=== PATIENT | male | born 1995 | race Caucasian/White ===

== ENCOUNTER 2019-09-07 11:40 | Emergency (ER) | payer SELFPAY ==
[~2019-09-07] VITALS: Ht 162 cm; Wt 59.0 kg
[2019-09-07] MEDS ORDERED: TETANUS,DIPTH,PERTUSS P/F (BOOSTRIX) 0.5 ML VIAL IM ONE (12:00)
[2019-09-07 12:01] LABS: BASOPHILS % (AUTO) 0 % (0-10); EOSINOPHILS # (AUTO) 0.1 10^3/uL (0.0-0.3); EOSINOPHILS % (AUTO) 1 % (0-10); HEMATOCRIT 46 % (40-54); HEMOGLOBIN 15.7 G/DL (13.3-17.7); LYMPHOCYTES # (AUTO) 3.2 X 10^3 (1.0-4.0); LYMPHOCYTES % (AUTO) 38 % (12-44); MEAN CORPUSCULAR HEMOGLOBIN 31 PG (25-34); MEAN CORPUSCULAR HGB CONC 34 G/DL (32-36); MEAN CORPUSCULAR VOLUME 90 FL (80-99); MEAN PLATELET VOLUME 10.9 FL (7.4-10.4); MONOCYTES # (AUTO) 0.7 X 10^3 (0.0-1.0); MONOCYTES % (AUTO) 8 % (0-12); NEUTROPHILS # (AUTO) 4.5 X 10^3 (1.8-7.8); NEUTROPHILS % (AUTO) 53 % (42-75); PLATELET COUNT 224 10^3/uL (130-400); RED CELL DISTRIBUTION WIDTH 13.4 % (10.0-14.5); WHITE BLOOD COUNT 8.5 10^3/uL (4.3-11.0)
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
[2019-09-07 12:09] LABS: ALBUMIN 4.4 GM/DL (3.2-4.5); CHLORIDE 108 MMOL/L (98-107); POTASSIUM 3.6 MMOL/L (3.6-5.0); SODIUM 141 MMOL/L (135-145)
[2019-09-07 12:10] LABS: CALCIUM 9.1 MG/DL (8.5-10.1)
[2019-09-07 12:11] LABS: GLUCOSE 165 MG/DL (70-105)
[2019-09-07 12:13] LABS: BILIRUBIN,TOTAL 1.1 MG/DL (0.1-1.0); CARBON DIOXIDE 18 MMOL/L (21-32)
[2019-09-07 12:15] LABS: ALKALINE PHOSPHATASE 139 U/L (40-136); CREATININE SERUM 0.97 MG/DL (0.60-1.30); GFR ESTIMATED > 60
[2019-09-07 12:16] LABS: BUN/CREATININE RATIO 10
--- NOTE | 2019-09-07 12:16 | Diagnostic Imaging Report ---
EXAMINATION: Right wrist radiographs, 3 views. COMPARISON: None. HISTORY: 24-year-old male, right wrist pain. FINDINGS: There is no identified acute fracture. There is no abnormal bone alignment. There is no radiopaque foreign body. Joint spaces are well preserved. IMPRESSION: 1. Unremarkable radiographs of the right wrist. Dictated by: Dictated on workstation # [id number]
--- NOTE | 2019-09-07 12:17 | Diagnostic Imaging Report ---
EXAMINATION: Right hand radiographs, 3 views. COMPARISON: None. HISTORY: 24-year-old male, right hand pain. FINDINGS: There is no identified acute fracture. Bone mineralization and alignment is grossly unremarkable. There is no identified radiopaque foreign body. The joint spaces are well preserved. The lateral radiograph is very obliquely positioned. IMPRESSION: 1. No identified acute bony abnormality of the right hand. Dictated by: Dictated on workstation # [id number]
[2019-09-07 12:18] LABS: ALANINE AMINOTRANSFERASE 18 U/L (0-55); MAGNESIUM 1.9 MG/DL (1.6-2.4)
[2019-09-07] MEDS ORDERED: LACTATED RINGERS 1,000 ML IV ONE (12:18)
[2019-09-07] MEDS ORDERED: ONDANSETRON 4 MG/2 ML (SDV) Z0FRAN ONE (12:33)
[2019-09-07] MEDS ORDERED: fentaNYL INJECTION 100 MCG/2 ML AMP IVP STA (12:34)
--- NOTE | 2019-09-07 12:35 | Diagnostic Imaging Report ---
EXAMINATION: Chest radiograph, portable AP view. DATE: 09/07/2019 12:10 PM hours. INDICATION: 24-year-old male, seizure. COMPARISON: None. FINDINGS: Heart size and mediastinal contours are unremarkable. There is no identified pneumothorax, large pleural effusion, or focal airspace consolidation. IMPRESSION: No identified acute cardiopulmonary abnormality. Dictated by: Dictated on workstation # [id number]
[2019-09-07] MEDS ORDERED: LEVETIRACETAM INJECTION 500 MG in NS (IVPB) 100 ML IV STA (12:36)
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
--- NOTE | 2019-09-07 12:56 | Diagnostic Imaging Report ---
PROCEDURE: CT head and CT cervical spine without contrast. TECHNIQUE: Multiple contiguous axial images were obtained through the brain and cervical spine without the use of intravenous contrast. Sagittal and coronal reformations through the cervical spine were then performed. Auto Exposure Controls were utilized during the CT exam to meet ALARA standards for radiation dose reduction. DATE: September 07, 2019. COMPARISON: None. INDICATION: 24-year-old male, seizure. Head and neck pain. FINDINGS: The ventricles and cerebral spinal fluid spaces are of normal size and configuration for the patient's age. There is no mass effect or midline shift. There is no acute intracranial hemorrhage. There is no abnormal extra-axial fluid collection. The visualized portions of the paranasal sinuses, mastoid air cells and middle ears are well aerated. There is no facet joint subluxation or dislocation. There is no asymmetric widening of the cervical disc spaces. There is no prominent prevertebral soft tissue swelling. There is straightening of the normal cervical lordosis. There is no identified acute fracture of the cervical spine. Cervical disc heights are well preserved. CT is limited for assessment of disc pathology as well as additional nonbloody causes of pathology in the spinal canal. The visualized portions of the lung apices are clear. IMPRESSION: 1. No identified acute intracranial abnormality. 2. No identified acute abnormality of the cervical spine. Dictated by: Dictated on workstation # [id number]
[2019-09-07] MEDS ORDERED: DIVA125T32 PO (13:45)
[2019-09-07 14:30] VITALS: BP 94/65
== END 2019-09-07 14:30 | disposition home or self-care (01) ==
LOC: ER 11:41
DX: S06.9X9A Unspecified intracranial injury with loss of consciousness of unspecified duration, initial encounter (principal); S00.83XA Contusion of other part of head, initial encounter; S60.811A Abrasion of right wrist, initial encounter; S60.312A Abrasion of left thumb, initial encounter; S40.211A Abrasion of right shoulder, initial encounter; G40.909 Epilepsy, unspecified, not intractable, without status epilepticus; R40.2142 Coma scale, eyes open, spontaneous, at arrival to emergency department; R40.2242 Coma scale, best verbal response, confused conversation, at arrival to emergency department; R40.2362 Coma scale, best motor response, obeys commands, at arrival to emergency department; F17.210 Nicotine dependence, cigarettes, uncomplicated; Z23 Encounter for immunization; V18.4XXA Pedal cycle driver injured in noncollision transport accident in traffic accident, initial encounter
CPT/HCPCS: 36415; 70450; 71045; 72125; 73110; 73130; 80053; 83735; 85025; 90715

== ENCOUNTER 2020-11-04 10:36 | Emergency (ER) | payer SELFPAY ==
[~2020-11-04] VITALS: Ht 162 cm; Wt 63.0 kg
[~2020-11-04 10:36] MED LIST: DIVA125T32 PO
[2020-11-04] MEDS ORDERED: ROCURONIUM 10 MG/ML 5 ML SYRINGE IV ONE (10:39)
[2020-11-04] MEDS ORDERED: MIDAZOLAM 5 MG/5 ML (VERSED) VIAL IJ ONE (10:39)
[2020-11-04] MEDS ORDERED: ETOMIDATE IV SOLN 20 MG/10 ML VIAL IV ONE (10:39)
[2020-11-04] MEDS ORDERED: fentaNYL INJ 100 MCG/2 ML AMP IV ONE (10:39)
[2020-11-04] MEDS ORDERED: NS IV 1000 ML 1,000 ML ONE (10:56)
[2020-11-04] MEDS ORDERED: VANCOMYCIN INJECTION 1,000 MG in NS (IVPB) 250 ML IV ONE (11:00)
[2020-11-04] MEDS ORDERED: PIPERACILLIN SODIUM/TAZOBACTAM 4.5 GM in NS (IVPB) 100 ML IV ONE (11:00)
[2020-11-04] MEDS ORDERED: proPOfol 200 MG/20 ML (DIPRIVAN) VIAL IV ONE (11:00)
[2020-11-04 11:06] LABS: BASOPHILS # (AUTO) 0.1 10^3/uL (0.0-0.1); BASOPHILS % (AUTO) 0 % (0-10); EOSINOPHILS % (AUTO) 6 % (0-10); HEMATOCRIT 55 % (40-54); HEMOGLOBIN 18.1 g/dL (13.3-17.7); LYMPHOCYTES # (AUTO) 9.3 10^3/uL (1.0-4.0); LYMPHOCYTES % (AUTO) 57 % (12-44); MEAN CORPUSCULAR HEMOGLOBIN 32 pg (25-34); MEAN CORPUSCULAR HGB CONC 33 g/dL (32-36); MEAN CORPUSCULAR VOLUME 98 fL (80-99); MEAN PLATELET VOLUME 11.4 fL (9.0-12.2); MONOCYTES # (AUTO) 0.9 10^3/uL (0.0-1.0); MONOCYTES % (AUTO) 5 % (0-12); NEUTROPHILS # (AUTO) 5.2 10^3/uL (1.8-7.8); NEUTROPHILS % (AUTO) 31 % (42-75); PLATELET COUNT 261 10^3/uL (130-400); WHITE BLOOD COUNT 16.5 10^3/uL (4.3-11.0)
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
[2020-11-04 11:09] LABS: ABG BASE EXCESS -9.9 MMOL/L (-2.5-2.5); ABG OXYGEN SATURATION 99 % (94-100); ABG PCO2 41 MMHG (35-45); ABG PO2 298 MMHG (79-93)
[2020-11-04 11:11] LABS: ALBUMIN 4.2 GM/DL (3.2-4.5); BILIRUBIN,URINE NEGATIVE (NEGATIVE); CLARITY,URINE SL CLOUDY; COLOR,URINE ORANGE; GLUCOSE, URINE (UA) NEGATIVE (NEGATIVE); KETONES,URINE NEGATIVE (NEGATIVE); LEUKOCYTE ESTERASE ,URINE NEGATIVE (NEGATIVE); NITRITE,URINE NEGATIVE (NEGATIVE); PH,URINE 6.5 (5-9); PROTEIN,URINE 2+ (NEGATIVE)
[2020-11-04 11:12] LABS: CALCIUM 8.9 MG/DL (8.5-10.1)
[2020-11-04 11:12] LABS: ABG PH 7.22 (7.37-7.43); ALLENS TEST YES-POS; INSPIRED O2 15; PATIENT TEMP 35.5; VENTILATOR YES
[2020-11-04 11:14] LABS: TOTAL PROTEIN 7.1 GM/DL (6.4-8.2)
[2020-11-04 11:15] LABS: BILIRUBIN,TOTAL 0.7 MG/DL (0.1-1.0)
[2020-11-04] MEDS ORDERED: POTASSIUM CL 10MEQ/50ML IVPB 50 ML IV ONE (11:15)
[2020-11-04] MEDS ORDERED: NS IV 1000 ML 1,000 ML IV ONE (11:15)
[2020-11-04 11:17] LABS: CREATININE SERUM 1.17 MG/DL (0.60-1.30)
[2020-11-04 11:18] LABS: BACTERIA,URINE TRACE /HPF; RBC,URINE 0-2 /HPF
--- NOTE | 2020-11-04 11:22 | Diagnostic Imaging Report ---
INDICATION: Respiratory arrest. COMPARISON: 09/07/2019. FINDINGS: ET tube and NG tube are present in good position. The lungs are well-aerated. There are consolidated infiltrates in the upper lobes bilaterally more severe on the right. The lower lobes are clear. Heart is not enlarged. No pneumothorax or pleural effusion. IMPRESSION: 1. Satisfactory intubation. 2. Consolidated infiltrates in the upper lobes more severe on the right. Dictated by: Dictated on workstation # [id number]
[2020-11-04 11:24] LABS: EOSINOPHILS % (MANUAL) 6 %; HYPOCHROMASIA MARKED; LYMPHOCYTES % (MANUAL) 49 %; MONOCYTES % (MANUAL) 15 %; NEUTROPHILS % (MANUAL) 30 %
[2020-11-04 11:26] LABS: VALPROIC ACID 51.7 UG/ML (50.0-100.0)
[2020-11-04 11:27] LABS: AMPHETAMINE SCREEN, URINE NEGATIVE (NEGATIVE); BARBITURATE SCREEN URINE NEGATIVE (NEGATIVE); BENZODIAZEPINES SCREEN URINE NEGATIVE (NEGATIVE); CANNABINOID SCREEN, URINE POSITIVE (NEGATIVE); COCAINE SCREEN URINE NEGATIVE (NEGATIVE); METHADONE STAT NEGATIVE (NEGATIVE); METHAMPHETAMINE SCREEN URINE S NEGATIVE (NEGATIVE); OPIATE SCREEN URINE NEGATIVE (NEGATIVE); OXYCODONE STAT NEGATIVE (NEGATIVE); PROPOXYPHENE STAT NEGATIVE (NEGATIVE); TRICYCLIC ANTIDEPRESSANTS SCRE NEGATIVE (NEGATIVE)
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
[2020-11-04] MEDS ORDERED: NS (IVPB) 100 ML ONE (11:52)
[2020-11-04] MEDS ORDERED: DexMEDEtomidine 250 ML DRIP 250 ML IV SCH (12:45)
[2020-11-04 12:50] VITALS: BP 126/74
[2020-11-04 13:06] LABS: ABG BASE EXCESS -6.9 MMOL/L (-2.5-2.5); ABG OXYGEN SATURATION 95 % (94-100); ABG PCO2 51 MMHG (35-45); ABG PO2 85 MMHG (79-93); ABG TCO2 21.6 MMOL/L (21.0-31.0)
[2020-11-04 13:10] LABS: ABG PH 7.21 (7.37-7.43)
[2020-11-04 13:11] LABS: ALLENS TEST POS; INSPIRED O2 15; PATIENT TEMP 36.8; VENTILATOR YES
[2020-11-04] MEDS ORDERED: fentaNYL INJ 100 MCG/2 ML AMP ONE ×2 (13:13→14:09)
[2020-11-04] MEDS ORDERED: fentaNYL INJ 100 MCG/2 ML AMP IVP ONE (13:15)
[2020-11-04] MEDS: fentaNYL INJ 100 MCG/2 ML AMP IVP ONE ×2 (13:18→15:16)
[2020-11-04] MEDS ORDERED: ACETAMINOPHEN 650 MG SUPP (TYLENOL) PR ONE (13:30)
[2020-11-04] MEDS ORDERED: PROPOFOL DRIP (ICU) 100 ML IV ONE (13:47)
[2020-11-04 14:16] VITALS: BP 124/85
--- OUTSIDE RECORDS SUMMARY | 2020-11-07 04:31 | XMS REPORT | Clinical Summary ---
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 3.7 (H) 0.0 - 2.0 mmol/L [facility] Specimen Blood Performing Organization Address City/[facility]/ZIP Code P anne Number [facility] [address] [place] [address] LABORATORIES [facility] [address] [place] [address] * Creatine Kinase (11/04/2020 3:30 PM CDT) Creatine Kinase 179 IU/L [facility]: Hospital Lab White Female: 30 - 160 IU/L Black Female: 30 - 430 IU/L White Male: 40 - 425 IU/L Black Male: 50 - 850 IU/L Specimen Blood Performing Organization Address City/State/ZIP Code P anne Number [address] [address] LABORATORIES [facility] [address] [place] [address] * Comprehensive Metabolic Panel (11/04/2020 3:30 PM CDT) Pathologist [facility] Sodium 141 133 - 147 MEQ/L [facility] Potassium 4.9 3.5 - 5.3 MEQ/L [facility] Chloride 106 96 - 112 MEQ/L [facility] Carbon Dioxide 23 20 - 32 MEQ/L [facility] Anion Gap 12 5 - 17 [facility] Calcium 8.5 8.4 - 10.5 mg/dL [facility] Glucose 85 70 - 100 mg/dL [facility] Protein Total 6.7 6.0 - 8.2 g/dL [facility] Lab Albumin 4.1 3.5 - 5.0 g/dL [facility] Alkaline 98 42 - 140 IU/L [facility] Lab Alanine 21 0 - 49 IU/L [facility] Lab e Aspartate 45 15 - 46 IU/L [facility] Lab e Bilirubin Total 2.7 (H) 0.2 - 1.3 mg/dL [facility] Blood Urea 13 7 - 26 mg/dL [facility] Lab Creatinine 0.9 0.6 - 1.3 mg/dL [facility] eGFR Male AA 123 60 - 200 [facility] mL/min/1.73sq [facility] Lab eGFR Male 102 60 - 200 [facility] Non- mL/min/1.73sq [facility] Lab Specimen Blood Performing Organization Address City/State/ZIP Code P anne Number [facility] [address] [place] [address] LABORATORIES [facility] [address] [place] [address] * CBC and Diff (manual diff if necessary) (11/04/2020 3:30 PM CDT) WBC 29.27 (H) 4.00 - 11.00 TH/uL [facility] Lab RBC 5.53 4.31 - 5.84 MIL/uL [facility] Lab Hemoglobin 17.7 (H) 13.0 - 17.0 g/dL [facility] Hematocrit 53 (H) 40 - 50 % [facility] MCV 95 80.0 - 99.0 fL [facility] MCH 32 27.0 - 34.0 pg [facility] MCHC 34 32 - 36 % [facility] RDW 13.0 11.5 - 14.5 % [facility] Platelet Count 229 140 - 400 TH/uL [facility] MPV 10.8 9.4 - 12.3 fL [facility] Nucleated RBCs 0 0 - 0 /100 [facility] % Neutrophils 78 45 - 78 % [facility] %Lymphocytes 16 15 - 47 % [facility] % Monocytes 4 0 - 12 % [facility] %Eosinophils 1 0 - 7 % [facility] %Basophils 0 0 - 2 % [facility] % Imm Grans 1 0 - 1 % [facility] # Granulocytes 22.83 (H) 1.70 - 6.80 TH/uL [facility] # Lymphocytes 4.68 (H) 1.00 - 3.30 TH/uL [facility] # Monocytes 1.17 (H) 0.20 - 0.90 TH/uL [facility] # Eosinophils 0.29 0.00 - 0.40 TH/uL [facility] # Basophils 0.11 (H) 0.00 - 0.10 TH/uL [facility] Vacuolated Present (A) Absent [facility] Lab Specimen Blood Performing Organization Address City/State/ZIP Code P anne Number [facility] [address] [place] [address] LABORATORIES [facility] [address] [place] [address] * Amylase (11/04/2020 3:30 PM CDT) Amylase 253 (H) 30 - 130 IU/L [facility] Specimen Blood Performing Organization Address City/State/ZIP Code P anne Number [facility] [address] [place] [address] LABORATORIES [facility] [address] [place] [address] * Alcohol Serum (11/04/2020 3:30 PM CDT) Alcohol Serum <10 0 - 9 mg/dL [facility] Specimen Blood Performing Organization Address City/[facility]/ZIP Code P anne Number [facility] [address] [place] [address] LABORATORIES [facility] [address] [place] [address] * ABORH Type (11/04/2020 3:30 PM CDT) ABORH Type B Positive [facility] Specimen Blood Performing Organization Address City/[facility]/ZIP Code P anne Number 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
--- OUTSIDE RECORDS SUMMARY | 2020-11-07 04:31 | XMS REPORT | Encounter Summary ---
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 if n o improvement within 3 days. ondansetron (ZOFRAN) injection 4 mg 4 mg, Intravenous, Every 6 hours PRN, nausea/vomiting (3rd line), Starting on Mon11/04/20 at 1610 polyethylene glycol (GLYCOLAX) packet 1 7 g 17 g, Oral, Daily PRN, constipation, constipation, Starting on Mon11/04/20 at 1610, Hold these medications if patient has had loose stool or diarrhea within previous 24 hours. potassium bicarb-citric acid (EFFER-K) effervescent tablet 20 mEq 20 mEq, Oral, As needed, aggressive electrolyte replacement, Starting on 11/04/20 at 1610, Administer if unable to swallow potassium tablets. Replace in addition to any scheduled potassium doses. Administer 20 mEq once for potassium level 3.6 to 3.9 mg/dL. Repea t potassium level in AM. Administer 20 mE q every hour x 2 doses (total dose = 40 mEq) for potassium level 3.1 to 3.5 mg/dL. Repeat potassium level in AM. Administer 20 mEq every hour x 3 doses (total dose = 60 mEq) for potassium level less than or equal to 3.0. Repeat potassium level 4 hours after last oral dose administered. Administer only if serum creatinine is less than 2 within the previous 48 hours and sustained urine output is greater than 20 mL/hr for 6 hours (if able to monitor). Completely dissolve tablet in 3 to 4 ounces (90-120 mL) of cold juice or water before administering. For fluid restricted patients, a smaller volume may be used to dilute (e.g. 15-30 mL). potassium chloride (KLOR-CON) CR tablet 20 mEq 20 mEq, Oral, As needed, aggressive electrolyte replacement, Starting on 11/04/20 at 1610, Replace in addition to any scheduled potassium doses. Administer 20 mEq once for potassium level 3.6 to 3.9 mg/dL. Repeat potassiu m level in AM. Administer 20 mEq every hour x 2 doses (total dose = 40 mEq) fo r potassium level 3.1 to 3.5 mg/dL. Repea t potassium level in AM. Administer 20 mE q every hour x 3 doses (total dose = 60 mEq) for potassium level less than or equal to 3.0. Repeat potassium level 4 hours after last oral dose administered . Administer only if serum creatinine is less than 2 within the previous 48 hour s and sustained urine output is greater than 20 mL/hr for 6 hours (if able to monitor). DO NOT CRUSH OR CHEW. potassium chloride 20 mEq in 100 mL IVP B 20 mEq, Intravenous, Administer over 2 Hours, As needed, aggressive electrolyt e replacement, Starting on Mon11/04/20 at 1610, Administer if unable to take oral potassium. Replace in addition to any scheduled potassium doses. Administer 20 mEq once for potassium level 3.6 to 3.9 mg/dL. Repeat potassium level in AM . Administer 20 mEq x 2 doses (total dose = 40 mEq) for potassium level 3.1 to 3. 5 mg/dL. Repeat potassium level 2 hours after last infusion complete. Administer 20 mEq x 3 doses (total dose = 60 mEq) for potassium level less than or equal to 3.0. Repeat potassium level 2 hours after last infusion complete. Administer only if serum creatinine is less than 2 within the previous 48 hour s and sustained urine output is greater than 20 mL/hr for 6 hours (if able to monitor). Potassium chloride should be infused at a rate of 10 mEq/hr through a peripheral line, or at a rate of 20 mEq/hr through a central line. 11/04/2020 11:08 PM CDT 5 mg prochlorperazine (COMPAZINE) injection Given 5-10 mg 5-10 mg, Intravenous, Every 4 hours PRN , nausea/vomiting (1st line), Starting on Mon11/04/20 at 1610, May repeat 5 mg dos e x 1 after 30 minutes if first dose ineffective. Do not exceed a total dose of 40 mg within a 24 hour period. Rate of administration should not exceed 5 mg/minute. prochlorperazine (COMPAZINE) injection 5-10 mg 5-10 mg, Intramuscular, Every 4 hours PRN, nausea/vomiting (1st line), Starting on Mon11/04/20 at 1610, Administer if patient does not have IV access. May repeat 5 mg dose x 1 after 60 minutes if first dose ineffective. D o not exceed a total dose of 40 mg within a 24 hour period. prochlorperazine (COMPAZINE) suppositor y 25 mg 25 mg, Rectal, Every 12 hours PRN, nausea/vomiting (1st line), Starting on Mon11/04/20 at 1610, Administer if patient does not have IV access and refuses IM injection. 11/05/2020 8:55 AM CDT 100 mL/hr 100 mL/hr sodium chloride 0.9% infusion New Bag 100 mL/hr, Intravenous, Continuous, Starting on Mon11/04/20 at 2115, For 48 hours 100 mL/hr 100 mL/hr New Bag 11/04/2020 10:23 PM CDT 11/04/2020 4:07 PM CDT 500 mL 1000 mL/hr sodium chloride 3% (HYPERTONIC) IV bolus New Bag 500 mL, Intravenous, Administer over 30 Minutes, Once, On Mon11/04/20 at 1630, For 1 dose, Double check the IV pump settings before administering. Serious injury or may occur if the rate o r duration of administration of concentrated sodium chloride is excessive. Central line is recommended for administration. REFRIGERATE 500 mL 1000 mL/hr New Bag 11/04/2020 4:06 PM CDT 11/06/2020 9:44 PM CDT 250 mg valproic acid (DEPAKENE) 250 mg/5 mL (5 Given mL) syrup 250 mg 250 mg, Oral, Every 12 hours scheduled, First dose on Mon11/05/20 at 1130, Do no t handle if or planning to becom e . Double Glove. Avoid inhalation and contact with skin, eyes, and clothing 250 mg Given 11/06/2020 9:24 AM CDT 250 mg Given 11/05/2020 9:37 PM CDT documented in this encounter Active and Recently Administered Medications Times are shown in CDT. 11/05/2020 11/06/2020 Medication Order 11/04/2020 0855 (Given - Provider: Lanie Sam RN) chlorhexidine (PERIDEX) 0.12 % solution 2026 (Given - 15 mL (CANCELED) Provider: Bianca Higgins 15 mL, Mouth/Throat, 2 times daily, ANA Valadez) First dose on Mon11/04/20 at 2100, Swish and expectorate, do not swallow. Following administration do not rinse with water or other mouthwashes, brush teeth, or eat immediately. 1446 (Given - Provider: Tracie Rios RN) divalproex (DEPAKOTE DR) delayed-releas e tablet 250 mg (COMPLETED) 250 mg, Oral, Once, Indications: Additional dose due to low Depakote level, On Mon11/06/20 at 1330, For 1 dose, DO NOT CRUSH OR CHEW. 0855 (Given - Provider: Lanie Sam , ANA) famotidine (PEPCID) injection 20 mg 2026 (Given - (CANCELED) Provider: Bianca Higgins 20 mg, Intravenous, 2 times daily, First Erppardeep, RN) dose on Mon11/04/20 at 2100, Pharmacy to adjust dose for renal insufficiency. 0524 (Given - Provider: Bianca munoz RN)1303 (Given - Provider: Lanie Sam RN)2137 (Given - Provider: Genny Winn, RN) 0605 (Given - Provider: Alejandra esquivel RN)1447 (Given - Provider: Tracie Rios RN)2144 (Not Given - Provider: Kacy Oh RN - Reason: Patient/family refused) heparin (porcine) 5,000 unit/mL 2223 (Given - injection 5,000 Units Provider: Bianca Higgins 5,000 Units, Subcutaneous, Every 8 ANA Valadez) hours, First dose on Mon11/04/20 at 2200 0000 (Stopped - Provider: Bianca abdalla RN) magnesium sulfate IVPB 2 gram (premix) 2215 (New Bag - (COMPLETED) Provider: Bianca Higgins 2 g, Intravenous, Administer over 2 ANA Valadez) Hours, Once, On Mon11/04/20 at 2115, For 1 dose sodium chloride 3% (HYPERTONIC) IV bolus 1606 (New B ag - (COMPLETED) Provider: Zoltan A 500 mL, Intravenous, Administer over 30 ANA Park)16 07 (New Minutes, Once, On Mon11/04/20 at 1630, Bag - Provider : For 1 dose, Double check the IV pump Zoltan Park RN) settings before administering. Serious injury or may occur if the rate o r duration of administration of concentrated sodium chloride is excessive. Central line is recommended for administration. REFRIGERATE 1220 (Given - Provider: Lanie Sam RN)2137 (Given - Provider: Genny Winn, RN) 0924 (Given - Provider: Tracie Rios RN)2143 (Given - Provider: Kacy Oh RN) valproic acid (DEPAKENE) 250 mg/5 mL (5 mL) syrup 250 mg 250 mg, Oral, Every 12 hours scheduled, First dose on Esmer 11/05/20 at 1130, Do no t handle if or planning to becom e . Double Glove. Avoid inhalation and contact with skin, eyes, and clothing 11/05/2020 11/06/2020 Medication Order 11/04/2020 0524 (Rate/Dose Change - Provider: Bianca Valadez RN)1006 (Stopped - Provider: Lanie Sam RN) fentaNYL 10 mcg/mL in 0.9% sodium 1543 (Hold this do se chloride infusion (CANCELED) - Provider: Zoltan Gastelum 20-300 mcg/hr (2-30 mL/hr), Intravenous, ANA Park - Reason: at 2-30 mL/hr, Continuous, Starting on Order paramet ers not Mon11/04/20 at 1543, Begin infusion at 20 met)1949 (N ew Bag - mcg/hr and titrate by sedation titration Provider: Sean Higgins protocol-directed increments every 15 JaredingANA) 5 minutes to a pain score less than 4 and (Rate/Dose C hange - RASS 0 to -1 (standard). Current RASS Provider: Maribell Higgins +1 to +2: A 25% increase in infusion ANA Valadez)2 314 rate should be preceded by at least 2 (Rate/Dose Dorothy nge - doses of PRN opioid within the last 6 Provider: Suzy Higgins hours. Current RASS +3 to +4: A 25-50% ErpANA roberto ) increase in infusion rate should be preceded by at least 1 dose of PRN morphine/hydromorphone or 2 doses of NV N fentanyl within the last hour. Call physician for infusion rates exceeding 300 mcg/hr. lactated ringers infusion (CANCELED) 1846 (New Bag - 100 mL/hr, Intravenous, Continuous, Provider: Zoltan Gastelum Starting on Mon11/04/20 at 1815, For 48 ANA Park)222 0 hours (Stopped - Provider: Bianca Valadez RN) 0855 (New Bag - Provider: Lanie lamas RN)1536 (Stopped - Provider: Lanie Sam RN) sodium chloride 0.9% infusion (CANCELED) 2223 (New B ag - 100 mL/hr, Intravenous, Continuous, Provider: Bianca Higgins Starting on Mon11/04/20 at 2115, For 48 ANA Valadez ) hours 11/05/2020 11/06/2020 Medication Order 11/04/2020 1220 (See Alternative - Provider: Niko Sam RN) acetaminophen (TYLENOL) suppository 325-650 mg(Linked Group 1) 325-650 mg, Rectal, Every 6 hours PRN, mild pain (pain score 1-3), temperature greater than or equal to 101.5 degrees Fahrenheit, or if patient declines higher pain score therapy, Starting on Mon11/04/20 at 1610, Do not exceed 4 GM/DAY of acetaminophen. If 65 or olde r do not exceed 3 GM/DAY. If chronic alcoholic do not exceed 2 GM/DAY. 1220 (Given - Provider: Lanie Sam RN - Comment: Pt c/o headache) acetaminophen (TYLENOL) tablet 325-650 mg(Linked Group 1) 325-650 mg, Oral, Every 6 hours PRN, mild pain (pain score 1-3), temperature greater than or equal to 101.5 degrees Fahrenheit, or if patient declines higher pain score therapy, Starting on Mon11/04/20 at 1610, Do not exceed 4 GM/DAY of acetaminophen. If 65 or olde r do not exceed 3 GM/DAY. If chronic alcoholic do not exceed 2 GM/DAY. dextrose (D50W) 50 % injection 25-50 mL 1632 (Given - 25-50 mL, Intravenous, As needed, low Provider: Kristine Gastelum blood sugar, for 24 hours., Starting on ANA Park) Mon11/04/20 at 1624, Give if patient NPO and IV access already available. If no IV access give Glucagon SQ or IM in arm and turn patient on side. For blood glucose (BG): Less than 50 mg/dL: Giv e D50W 50 mL. Check BG every 15 minutes and repeat until greater than 80 mg/dL. Less than 70 mg/dL: Give D50W 25 mL. Check BG every 15 minutes and repeat until greater than 80 mg/dL. Less than 70 mg/dL and patient unconscious: Give D50W 50 mL. Call physician for additional orders. Check BG every 15 minutes and repeat until greater than 8 0 mg/dL. Once blood glucose greater michael n 80 mg/dL, check BG in one hour. Call physician if less than 70 mg/dL. 033 (Given - Provider: Bianca munoz RN)521 (Given - Provider: Bianca Valadez RN) fentaNYL (SUBLIMAZE) injection 50-100 1656 (Given - mcg (CANCELED) Provider: Zoltan Gastelum 50-100 mcg, Intravenous, Every 15 min AAN Park)184 PRN, moderate pain (pain score 4-6), (Given - Provid er: severe pain (pain score 7-10), or Zoltan Park, agitation to achieve RASS goal, Starting RN)1924 (Gi denise - on Mon11/04/20 at 1539, RASS goal: 0 to Provider: Nicola er A -1 (standard) Current RASS +1 to +2: ANA Park)1944 Nurse may start or request physician (Given - Provid er: order for fentanyl infusion if 2 or more Marivel huston RN - PRN fentanyl doses given within the last Comment: fide chandra, 6 hours Current RASS +3 to +4: Nurse may fighting ve nt)2055 start or request physician order for (Given - Provid er: fentanyl infusion if 2 or more PRN Sharmaine Witt, fentanyl doses given within the last RN)2308 (Given - hour Provider: Bianca Valadez RN) glucagon (GLUCAGEN) injection 1 mg(Linked Group 2) 1 mg, Intramuscular, As needed, low blood sugar, low blood sugar, Starting on Mon11/04/20 at 1624, Give if patient NPO and no IV access. May give IM or SQ in arm and turn patient on side. Reconstitute powder for injection by adding 1 mL of putty and caulking supervisor-supplied sterile diluent or sterile water for injection to a vial containing 1 unit o f the drug, to provide solutions containing 1 mg of glucagon/mL. Shake vial gently to dissolve. glucagon (GLUCAGEN) injection 1 mg(Linked Group 2) 1 mg, Subcutaneous, As needed, low bloo d sugar, low blood sugar, Starting on Mon11/04/20 at 1624, Give if patient NPO and no IV access. May give IM or SQ in arm and turn patient on side. Reconstitute powder for injection by adding 1 mL of putty and caulking supervisor-supplied sterile diluent o r sterile water for injection to a vial containing 1 unit of the drug, to provide solutions containing 1 mg of glucagon/mL. Shake vial gently to dissolve. glucose chewable tablet 16-32 g 16-32 g, Oral, As needed, low blood sugar, Starting on Mon11/04/20 at 1624, Give food, drink, or glucose tablets to treat low blood glucose if patient able to eat. For blood glucose (BG): Less than 50 mg/dL: Give 30 g of carbohydrat e (32 g if using glucose tablets). Check BG every 15 minutes and repeat until greater than 80 mg/dL. Less than 70 mg/dL: Give 15 g of carbohydrate (16 g if using glucose tablets). Check BG every 15 minutes and repeat until greater than 80 mg/dL. Less than 70 mg/dL and patient unconscious: BG to be treated with D50W until greater than 80 mg/dL. Once BG greater than 80 mg/dL, give 30 g of carbohydrate (32 g if usin g glucose tablets) if patient awake and able to swallow. Once blood glucose greater than 80 mg/dL, check BG in one hour. Call physician if less than 70 mg/dL. 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 Administer 4 grams over 4 hours for magnesium level less than or equal to 1.9 mg/dL. Repeat magnesium level in AM. Administer only if serum creatinine is less than 2 within the previous 48 hours and sustained urine output is greater than 20 mL/hr for 6 hours (if able to monitor). miconazole nitrate (ALOE VESTA) 2 % ointment Topical, 3 times daily PRN, perineal or skin fold redness, Starting on Mon11/04/20 at 1610, Consult wound care if n o improvement within 3 days. ondansetron (ZOFRAN) injection 4 mg 4 mg, Intravenous, Every 6 hours PRN, nausea/vomiting (3rd line), Starting on Mon11/04/20 at 1610 polyethylene glycol (GLYCOLAX) packet 1 7 g 17 g, Oral, Daily PRN, constipation, constipation, Starting on Mon11/04/20 at 1610, Hold these medications if patient has had loose stool or diarrhea within previous 24 hours. potassium bicarb-citric acid (EFFER-K) effervescent tablet 20 mEq(Linked Group 3) 20 mEq, Oral, As needed, aggressive electrolyte replacement, Starting on 11/04/20 at 1610, Administer if unable to swallow potassium tablets. Replace in addition to any scheduled potassium doses. Administer 20 mEq once for potassium level 3.6 to 3.9 mg/dL. Repea t potassium level in AM. Administer 20 mE q every hour x 2 doses (total dose = 40 mEq) for potassium level 3.1 to 3.5 mg/dL. Repeat potassium level in AM. Administer 20 mEq every hour x 3 doses (total dose = 60 mEq) for potassium level less than or equal to 3.0. Repeat potassium level 4 hours after last oral dose administered. Administer only if serum creatinine is less than 2 within the previous 48 hours and sustained urine output is greater than 20 mL/hr for 6 hours (if able to monitor). Completely dissolve tablet in 3 to 4 ounces (90-120 mL) of cold juice or water before administering. For fluid restricted patients, a smaller volume may be used to dilute (e.g. 15-30 mL). potassium chloride (KLOR-CON) CR tablet 20 mEq(Linked Group 3) 20 mEq, Oral, As needed, aggressive electrolyte replacement, Starting on 11/04/20 at 1610, Replace in addition to any scheduled potassium doses. Administer 20 mEq once for potassium level 3.6 to 3.9 mg/dL. Repeat potassiu m level in AM. Administer 20 mEq every hour x 2 doses (total dose = 40 mEq) fo r potassium level 3.1 to 3.5 mg/dL. Repea t potassium level in AM. Administer 20 mE q every hour x 3 doses (total dose = 60 mEq) for potassium level less than or equal to 3.0. Repeat potassium level 4 hours after last oral dose administered . Administer only if serum creatinine is less than 2 within the previous 48 hour s and sustained urine output is greater than 20 mL/hr for 6 hours (if able to monitor). DO NOT CRUSH OR CHEW. potassium chloride 20 mEq in 100 mL IVPB(Linked Group 3) 20 mEq, Intravenous, Administer over 2 Hours, As needed, aggressive electrolyt e replacement, Starting on Mon11/04/20 at 1610, Administer if unable to take oral potassium. Replace in addition to any scheduled potassium doses. Administer 20 mEq once for potassium level 3.6 to 3.9 mg/dL. Repeat potassium level in AM . Administer 20 mEq x 2 doses (total dose = 40 mEq) for potassium level 3.1 to 3. 5 mg/dL. Repeat potassium level 2 hours after last infusion complete. Administer 20 mEq x 3 doses (total dose = 60 mEq) for potassium level less than or equal to 3.0. Repeat potassium level 2 hours after last infusion complete. Administer only if serum creatinine is less than 2 within the previous 48 hour s and sustained urine output is greater than 20 mL/hr for 6 hours (if able to monitor). Potassium chloride should be infused at a rate of 10 mEq/hr through a peripheral line, or at a rate of 20 mEq/hr through a central line. prochlorperazine (COMPAZINE) injection 2308 (Given - 5-10 mg(Linked Group 4) Provider: Bianca Higgins 5-10 mg, Intravenous, Every 4 hours PRN, Allyson, RN) nausea/vomiting (1st line), Starting on Mon11/04/20 at 1610, May repeat 5 mg dos e x 1 after 30 minutes if first dose ineffective. Do not exceed a total dose of 40 mg within a 24 hour period. Rate of administration should not exceed 5 mg/minute. prochlorperazine (COMPAZINE) injection 2308 (See 5-10 mg(Linked Group 4) Alternative - 5-10 mg, Intramuscular, Every 4 hours Provider: Suzy Higgins PRN, nausea/vomiting (1st line), ANA Valadez) Starting on Mon11/04/20 at 1610, Administer if patient does not have IV access. May repeat 5 mg dose x 1 after 60 minutes if first dose ineffective. D o not exceed a total dose of 40 mg within a 24 hour period. prochlorperazine (COMPAZINE) suppository 2308 (See 25 mg(Linked Group 4) Alternative - 25 mg, Rectal, Every 12 hours PRN, Provider: Bianca Higgins nausea/vomiting (1st line), Starting on Wali Valadez) Mon11/04/20 at 1610, Administer if patient does not have IV access and refuses IM injection. Order Group 1: acetaminophen (TYLENOL) tablet 325-650 mgJump to med 325-650 mg, Oral, Every 6 hours PRN, mi ld pain (pain score 1-3), temperature greater than or equal to 101.5 degrees Fahrenheit, or if jules ent declines higher pain score therapy, Starting on Mon11/04/20 at 1610
Do not exceed 4 GM/DA Y of acetaminophen. If 65 or older do not exceed 3 GM/DAY. If chronic alcoholic do no t exceed 2 GM/DAY.
Or acetaminophen (TYLENOL) suppository 325 -650 mgJump to med 325-650 mg, Rectal, Every 6 hours PRN, mild pain (pain score 1-3), temperature greater than or equal to 101.5 degrees Fahrenheit, or if jules ent declines higher pain score therapy, Starting on Mon11/04/20 at 1610
Do not exceed 4 GM/DA Y of acetaminophen. If 65 or older do not exceed 3 GM/DAY. If chronic alcoholic do no t exceed 2 GM/DAY.
Group 2: glucagon (GLUCAGEN) injection 1 mgJump to med 1 mg, Intramuscular, As needed, low blo od sugar, low blood sugar, Starting on Mon11/04/20 at 1624
Give if patient NPO and no IV a ccess. May give IM or SQ in arm and turn patient on side. Reconstitute powder for inje ction by adding 1 mL of putty and caulking supervisor- supplied sterile diluent or sterile water for injection to a via l containing 1 unit of the drug, to provide solutions containing 1 mg of glucagon/mL. Shake v ial gently to dissolve.
Or glucagon (GLUCAGEN) injection 1 mgJump to med 1 mg, Subcutaneous, As needed, low bloo d sugar, low blood sugar, Starting on Mon11/04/20 at 1624
Give if patient NPO and no IV a ccess. May give IM or SQ in arm and turn patient on side. Reconstitute powder for inje ction by adding 1 mL of putty and caulking supervisor- supplied sterile diluent or sterile water for injection to a via l containing 1 unit of the drug, to provide solutions containing 1 mg of glucagon/mL. Shake v ial gently to dissolve.
Group 3: potassium chloride (KLOR-CON) CR tablet 20 mEqJump to med 20 mEq, Oral, As needed, aggressive nia ctrolyte replacement, Starting on Mon11/04/20 at 1610
Replace in addition to any sche duled potassium doses. Administer 20 mEq once for potassium level 3.6 to 3.9 mg/dL. Repea t potassium level in AM. Administer 20 mEq every hour x 2 doses (total dose = 40 mEq) for potas sium level 3.1 to 3.5 mg/dL. Repeat potassium level in AM. Administer 20 mEq every ho ur x 3 doses (total dose = 60 mEq) for potassium level less than or equal to 3.0. Repeat potassium level 4 hours after last oral dose administered. Administer only if serum cr eatinine is less than 2 within the previous 48 hours and sustained urine output is greater than 20 mL/hr for 6 hours (if able to monitor). DO NOT CRUSH OR CHEW.
Or potassium bicarb-citric acid (EFFER-K) effervescent tablet 20 mEqJump to med 20 mEq, Oral, As needed, aggressive nia ctrolyte replacement, Starting on Mon11/04/20 at 1610
Administer if unable to swallow potassium tablets. Replace in addition to any scheduled potassium doses. Administer 20 mEq once for potassium level 3.6 to 3.9 mg/dL. Repeat potassium level in AM. Administer 20 mEq every hour x 2 doses (total dose = 40 mEq) for potassium level 3.1 to 3.5 mg/dL. Repea t potassium level in AM. Administer 20 mEq every hour x 3 doses (total dose = 60 mEq) for potas sium level less than or equal to 3.0. Repeat potassium level 4 hours after last oral dose administer ed. Administer only if serum creatinine is less than 2 within the previous 48 hours and sustained urine output is greater than 20 mL/hr for 6 hours (if able to monitor). Completely d issolve tablet in 3 to 4 ounces (90-120 mL) of cold juice or water before administering. For fluid r estricted patients, a smaller volume may be used to dilute (e.g. 15-30 mL).
Or potassium chloride 20 mEq in 100 mL IVP BJump to med 20 mEq, Intravenous, Administer over 2 Hours, As needed, aggressive electrolyte replacement, Starting on Mon11/04/20 at 1610
Admin ister if unable to take oral potassium. Replace in addition to any scheduled potassium dos es. Administer 20 mEq once for potassium level 3.6 to 3.9 mg/dL. Repeat potassium level in AM. Administer 20 mEq x 2 doses (total dose = 40 mEq) for potassium level 3.1 to 3.5 mg/dL. R epeat potassium level 2 hours after last infusion complete. Administer 20 mEq x 3 doses (tota l dose = 60 mEq) for potassium level less than or equal to 3.0. Repeat potassium level 2 hours aft er last infusion complete. Administer only if serum creatinine is less than 2 within the previous 48 hours and sustained urine output is greater than 20 mL/hr for 6 hours (if able to m onitor). Potassium chloride should be infused at a rate of 10 mEq/hr through a peripheral line, or at a rate of 20 mEq/hr through a central line.
Group 4: prochlorperazine (COMPAZINE) injection 5-10 mgJump to med 5-10 mg, Intravenous, Every 4 hours PRN , nausea/vomiting (1st line), Starting on Mon11/04/20 at 1610
May repeat 5 mg dose x 1 after 30 minutes if first dose ineffective. Do not exceed a total dose of 40 mg within a 24 hour pe riod. Rate of administration should not exceed 5 mg/minute.
Or prochlorperazine (COMPAZINE) injection 5-10 mgJump to med 5-10 mg, Intramuscular, Every 4 hours P RN, nausea/vomiting (1st line), Starting on Mon11/04/20 at 1610
Administer if patient does not have IV access. May repeat 5 mg dose x 1 after 60 minutes if first dose ineffective.&nbsp ;Do not exceed a total dose of 40 mg within a 24 hour period.
Or prochlorperazine (COMPAZINE) suppositor y 25 mgJump to med 25 mg, Rectal, Every 12 hours PRN, naus ea/vomiting (1st line), Starting on Mon11/04/20 at 1610
Administer if patient does not have IV access and refuses IM injection.
documented in this encounter
== END 2020-11-04 14:16 | disposition short-term general hospital (02) ==
LOC: EDUNIT# 10:37 → ER 10:38
DX: T75.1XXA Unspecified effects of drowning and nonfatal submersion, initial encounter (principal); I46.8 Cardiac arrest due to other underlying condition; E87.6 Hypokalemia; G40.909 Epilepsy, unspecified, not intractable, without status epilepticus; Z79.899 Other long term (current) drug therapy; Z20.822 Contact with and (suspected) exposure to COVID-19
CPT/HCPCS: 31500; 51702; 70450; 71045; 72125; 80053; 80164; 80306; 81000; 82550; 82805; 83605; 83735; 84484; 85007; 85027; 87040; 87070; 87077; 87185; 87205; 87636; 93005; 94002; 94799; 99291; G0480; 36415; 80320

== ENCOUNTER 2020-11-09 12:21 | Emergency (ER) | payer MEDICARE, OTHER ==
[~2020-11-09] VITALS: Ht 160 cm; Wt 63.0 kg
[2020-11-09 13:21] LABS: BASOPHILS % (AUTO) 0 % (0-10); EOSINOPHILS # (AUTO) 0.7 10^3/uL (0.0-0.3); EOSINOPHILS % (AUTO) 9 % (0-10); HEMATOCRIT 43 % (40-54); HEMOGLOBIN 14.7 g/dL (13.3-17.7); LYMPHOCYTES # (AUTO) 2.2 10^3/uL (1.0-4.0); LYMPHOCYTES % (AUTO) 29 % (12-44); MEAN CORPUSCULAR HEMOGLOBIN 32 pg (25-34); MEAN CORPUSCULAR HGB CONC 35 g/dL (32-36); MEAN CORPUSCULAR VOLUME 93 fL (80-99); MEAN PLATELET VOLUME 11.1 fL (9.0-12.2); MONOCYTES # (AUTO) 0.7 10^3/uL (0.0-1.0); MONOCYTES % (AUTO) 9 % (0-12); NEUTROPHILS # (AUTO) 3.8 10^3/uL (1.8-7.8); NEUTROPHILS % (AUTO) 51 % (42-75); PLATELET COUNT 184 10^3/uL (130-400); WHITE BLOOD COUNT 7.3 10^3/uL (4.3-11.0)
[2020-11-09 13:26] LABS: INR 0.9 (0.8-1.4); PROTHROMBIN TIME PATIENT 12.3 SEC (12.2-14.7)
[2020-11-09 13:28] LABS: ALBUMIN 4.1 GM/DL (3.2-4.5); CHLORIDE 108 MMOL/L (98-107); POTASSIUM 3.9 MMOL/L (3.6-5.0); SODIUM 145 MMOL/L (135-145)
[2020-11-09 13:29] LABS: CALCIUM 10.3 MG/DL (8.5-10.1)
[2020-11-09 13:31] LABS: GLUCOSE 94 MG/DL (70-105); TOTAL PROTEIN 7.3 GM/DL (6.4-8.2)
[2020-11-09 13:32] LABS: CARBON DIOXIDE 26 MMOL/L (21-32)
[2020-11-09 13:33] LABS: BILIRUBIN,TOTAL 0.5 MG/DL (0.1-1.0)
[2020-11-09 13:34] LABS: ALKALINE PHOSPHATASE 69 U/L (40-136); CREATININE SERUM 0.72 MG/DL (0.60-1.30); GFR ESTIMATED 132
[2020-11-09 13:35] LABS: BUN/CREATININE RATIO 14
[2020-11-09 13:37] LABS: ALANINE AMINOTRANSFERASE 102 U/L (0-55)
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
[2020-11-09] MEDS ORDERED: HOLD METFORMIN - RECEIVED CONTRAST 20 ML VIAL IV SCH (16:15)
[2020-11-09] MEDS ORDERED: NS 100 ML (IVPB) BAG IV ONE (16:15)
[2020-11-09] MEDS ORDERED: IOHEXOL 350 MG/ML 100 ML (OMNIPAQUE 350) VIAL IV ONE (16:15)
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
[2020-11-09] MEDS ORDERED: AZIT250T12 PO (19:49)
[2020-11-09] MEDS ORDERED: AZITHROMYCIN 250 MG TAB (ZITHROMAX) PO ONE (20:00)
[2020-11-09 20:06] VITALS: BP 118/100
--- OUTSIDE RECORDS SUMMARY | 2020-11-10 08:58 | XMS REPORT | Clinical Summary ---
Author Author [facility] Organization [facility] Address Unknown Phone Unavailable Care Team Providers Care Pv Design And Installation Technician Name Role Phone PCP Unavailable Allergies No [...] Acid 45 (L) 50 - 120 ug/mL [facility] Lab Specimen Blood Performing Organization Address City/State/ZIP Code P anne Number [address] [place] [address] [facility] [address] [place] [address] * XR Chest single view frontal (11/06/2020 6:22 AM CDT) Only the most recent of 3 results within the time period is included. Specimen Impressions Performed At Worsening multifocal heterogeneous opacities bilatera lly. ISAIAH Support apparatus as described. READING SITE: Home, due to Covid-19 Narrative Performed At Patient: LESTER GAMBLE Sex#: M #: 1995 Josh# : [id number] Location: [address] E[address]-01 Accession# : [id number] Ordering Provider: DWAINE POON Procedure Requested: [id number] XR CHEST SINGLE VIEW FRONTAL Exam Ordered: [...] LESTER GAMBLE Sex#: M #: 1995 Josh#: [id number] Location: [address] E305-01 Ordering Provider: DWAINE POON Procedure Requested: [id number] XR CHEST SINGLE VIEW FRONTAL Exam Ordered: [...] At Asa Lyman MD 11/05/2020 10:[address] [facility] NEURODIAGNOST[facility] - Routine EEG Report DATE [...] syrup 250 mg 250 mg Oral Q12H [facility] So [place] MD FINDINGS: This is a [...] sleep with normal sym metric sleep morphologies. 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 IMPRESSION: This was a normal routine E EG recorded in the awake, drowsy, and asleep states. There were n o clear focal or epileptiform features seen. Performing Organization Address City/State/ZIP Code P anne Number [facility] * Lytes//HGB/CA POC (11/05/2020 3:42 AM CDT) Only the most recent of 2 results within the time period is included. Ionized Calcium 4.4 (L) 4.5 - 5.3 mg/dL [facility] Lab Sodium 137 133 - 147 MEQ/L [facility] Lab Potassium 3.9 3.5 - 5.3 MEQ/L [facility] Lab Specimen Arterial Performing Organization Address City/State/[facility] Code P anne Number [address] [address] LABORATORIES [facility] Lab [address] [place] [address] * Arterial Blood Gas + Coox (11/05/2020 3:42 AM CDT) Only the most recent of 2 results within the time period is included. Hemoglobin 14.4 13.0 - 17.0 g/dL [facility] Whole Blood [facility] Lab Oxyhemoglobin 95.5 95.0 - 100.0 % THB [facility] Lab Carboxyhemoglob 2.3 (H) 0.0 - 1.5 % THB [facility] in [facility] Lab Methemoglobin 1.7 (H) 0.0 - 1.5 % THB [facility] Total Oxygen 99.5 95 - 100 % THB [facility] Lab O2 Content 19.6 17.0 - 100.0 mL/dL [facility] Arterial [facility] Lab Sample Site L RADIAL [facility] Mode MV [facility] Fraction of 0.[address] [facility] Oxygen [facility] Lab Device MMV [facility] Set Rate 20 bpm [facility] Tidal Volume 450.0 mL [facility] PEEP/CPAP 5.0 cmH20 [facility] PSV/PIP 5.0 cmH20 [facility] PO2 Arterial 144 (H) 80 - 100 mm Hg [facility] Lab pCO2 Arterial 32 (L) 35 - 45 mm Hg [facility] pH Arterial 7.41 7.35 - 7.45 units [facility] Bicarbonate 20.3 19.0 - 29.0 MEQ/L [facility] Base Excess -3.4 (L) -3.0 - 3.0 MEQ/L [facility] Specimen Arterial Performing Organization Address City/[facility]/ZIP Code P [facility] Number [address] [address] LABORATORIES [facility] [address] [place] [address] * Phosphorus - In AM (11/05/2020 12:34 AM CDT) Phosphorus 2.4 (L) 2.5 - 4.5 mg/dL [facility] Specimen Blood Performing Organization Address City/[facility]/ZIP Code P [facility] Number [address] [address] LABORATORIES [facility] [address] [place] [address] * Magnesium - In AM (11/05/2020 12:34 AM CDT) Only the most recent of 2 results within the time period is included. Magnesium 2.4 1.4 - 2.7 mg/dL [facility] Specimen Blood Performing Organization Address City/[facility]/ZIP Code P [facility] Number [address] [address] LABORATORIES [facility] [address] [place] [address] * Complete Blood Count - In AM (11/05/2020 12:34 AM CDT) WBC 18.59 (H) 4.00 - 11.00 TH/uL [facility] Lab RBC 4.67 4.31 - 5.84 MIL/uL [facility] Lab Hemoglobin 15.0 13.0 - 17.0 g/dL [facility] Hematocrit 42 40 - 50 % [facility] MCV 91 80.0 - 99.0 fL [facility] MCH 32 27.0 - 34.0 pg [facility] MCHC 36 32 - 36 % [facility] RDW 13.0 11.5 - 14.5 % [facility] Platelet Count 159 140 - 400 TH/uL [facility] MPV 11.2 9.4 - 12.3 fL [facility] Nucleated RBCs 0 0 - 0 /100 [facility] Specimen Blood Performing Organization Address City/State/[place] [address] [place] [address] * Basic Metabolic Panel (BMP) - In AM (11/05/2020 12:34 AM CDT) Pathologist [facility] Sodium 141 133 - 147 MEQ/L [facility] Potassium 4.4 3.5 - 5.3 MEQ/L [facility] Lab Chloride 111 96 - 112 MEQ/L [facility] Carbon Dioxide 23 20 - 32 MEQ/L [facility] Lab Anion Gap 8 5 - 17 [facility] Calcium 8.0 (L) 8.4 - 10.5 mg/dL [facility] Lab Glucose 95 70 - 100 mg/dL [facility] Blood Urea 13 7 - 26 mg/dL [facility] Lab Creatinine 0.7 0.6 - 1.3 mg/dL [facility] Lab eGFR Male AA >130 60 - 200 [facility] mL/min/1.73sq [facility] Lab eGFR Male >130 60 - 200 [facility] Non-AA mL/min/1.73sq [facility] Lab Specimen Blood Performing Organization Address City/[facility]/ZIP Code P anne Number [facility] [address] [place] [address] LABORATORIES [facility] [address] [place] [address] * Retype Patient ABORH (11/05/2020 12:04 AM CDT) ABORH Type B Positive [facility] Confirm Blood Yes [facility] Lab Specimen Blood Performing Organization Address City/[facility]/ZIP Code P anne Number [facility] [address] [place] [address] LABORATORIES [facility] [address] [place] [address] * Lactate Venous WB - 2hr (11/04/2020 8:00 PM CDT) [facility] Lactate Venous 1.8 0.0 - 2.0 mmol/L [facility] Specimen Blood Performing Organization Address City/[facility] Code P anne Number [facility] [address] [place] [address] LABORATORIES [facility] [address] [place] [address] * GLUCOSE POC (11/04/2020 4:44 PM CDT) Only the most recent of 2 results within the time period is included. [facility] Glucose POC 162 (H) 70 - 100 mg/dL [facility] Specimen Performing Organization Address City/[facility]/ZIP Code P anne Number [facility] [address] [place] [address] LABORATORIES * CT Thoracic Spine reconstructed (11/04/2020 3:41 PM CDT) Specimen Impressions Performed At Impression: ISAIAH Chronic-appearing fracture deformity of the inferior endplate of T11. No acute fracture of the thoracic spine . READING SITE: [facility]. ATTESTATION STATEMENT: The Staff Radiologist has personally re viewed the images and dictated, reviewed, or edited the final report. Narrative Performed At Patient: LESTER GAMBLE Sex#: M #: 1995 Josh# : [id number] Location: [address] ICU [id number] Acces coretta#: [id number] Ordering Provider: JACKELYN WILLS Procedure Requested: [id number] CT THORA CIC SPINE RECONSTRUCTED Exam Ordered: [...] LESTER GAMBLE Sex#: M #: 1995 Josh#: [id number] Location: [address] ICU [id number] Ordering Provider: JACKELYN WILLS Procedure Requested: [id number] CT THORACIC SPINE RECONSTRUCTED Exam Ordered: 11/04/2020 [...] fracture of the thoracic spine. READING SITE: [facility]. ATTESTATION STATEMENT: The Staff Radiologist has personally reviewed the images and dictated, reviewed, or edited the final report. Performing Organization Address City/State/ZIP Code P anne Number ISAIAH * CT Lumbar Spine reconstructed (11/04/2020 3:41 PM CDT) Specimen Impressions Performed At 1. Chronic appearing avulsion fractures of superior e ndplates of L3 and [facility] L4. 2. No acute osseous abnormality lumbar spine. READING SITE: [facility]. ATTESTATION STATEMENT: The Staff Radiologist has personally re viewed the images and dictated, reviewed, or edited the final report. Narrative Performed At Patient: LESTER GAMBLE Sex#: M #: 1995 Josh# : [id number] Location: [address] ICU [id number] Acces coretta#: [id number] Ordering Provider: JACKELYN WILLS Procedure Requested: [id number] CT LUMBA R SPINE RECONSTRUCTED Exam Ordered: [...] LESTER GAMBLE Sex#: M #: 1995 Josh#: [id number] Location: [address] ICU [id number] Ordering Provider: JACKELYN WILLS Procedure Requested: [id number] CT LUMBAR SPINE RECONSTRUCTED Exam Ordered: 11/04/2020 [...] osseous abnormality lumbar s pine. READING SITE: [facility]. ATTESTATION STATEMENT: The Staff Radiologist has personally [...] 4. Support devices as described. READING SITE: [facility] Narrative Performed At Patient: LESTER GAMBLE Sex#: M #: 1995 Josh# : [id number] Location: [facility] E4A ICU [id number]-93 Acces coretta#: [id number] Ordering Provider: JACKELYN WILLS Procedure Requested: [id number] CT CHEST W CONTRAST Exam Ordered: 11/04/2020 [...] LESTER GAMBLE Sex#: M #: 1995 Josh#: [id number] Location: [address] ICU [id number]-[id number] Ordering Provider: JACKELYN WILLS Procedure Requested: [id number] CT CHEST W CONTRAST Exam Ordered: 11/04/2020 [...] 4. Support devices as described. READING SITE: [facility] Performing Organization Address City/State/ZIP Code P anne Number [facility] * CT Abdomen Pelvis w contrast (11/04/2020 3:41 PM CDT) Specimen Impressions Performed At 1. No acute process is seen within the abdomen or pel vis allowing for ISAIAH motion artifact. READING SITE: [facility] Narrative Performed At Patient: LESTER GAMBLE Sex#: M #: 1995 Josh# : [id number] Location: [facility] ICU [id number]-21 Acc coretta#: [id number] Ordering Provider: JACKELYN WILLS Procedure Requested: [id number] CT ABDOM EN PELVIS W CONTRAST Exam [...] LESTER GAMBLE Sex#: M #: 1995 Josh#: [id number] Location: [address] ICU [id number] Ordering Provider: JACKELYN WILLS Procedure Requested: [id number] CT ABDOMEN PELVIS W CONTRAST Exam Ordered: [...] pelvis allowing for motion artifact. READING SITE: [facility] Performing Organization Address City/State/ZIP Code P anne [...] ed ited the final report. READING SITE: [facility]. Narrative Performed At Patient: LOCKSKINLESTER Sex#: M #: 1995 Josh# : [id number] Location: [address] ICU [id number]-[id number] Acces coretta#: [id number] Ordering Provider: JACKELYN WILLS Procedure Requested: [id number] CT MAXIL LOFACIAL AREA WO CONTRAST Exam [...] LESTER GAMBLE Sex#: Ronaldo #: 1995 Josh#: [id number] Location: [address] ICU [id number]-[id number] Ordering Provider: JACKELYN WILLS Procedure Requested: [id number] CT MAXILLOFACIAL AREA WO CONTRAST Exam Ordered: [...] and/or edited the final report. READING SITE: [facility]. Performing Organization Address City/State/ZIP Code P anne Number ISAIAH * CT Head wo contrast (11/04/2020 3:36 PM CDT) Specimen Impressions Performed At Impression: ISAIAH No acute intracranial process. READING SITE: [facility]. ATTESTATION STATEMENT: The Staff Radiologist has personally re viewed the images and dictated, reviewed, or edited the final report. Narrative Performed At Patient: LESTER GAMBLE Sex#: M #: 1995 Josh# : [id number] Location: [facility] E4A ICU [id number] [facility]#: [id number] Ordering Provider: JACKELYN WILLS Procedure Requested: [id number] CT HEAD WO CONTRAST Exam Ordered: 11/04/2020 [...] CT face report for further details. 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 Procedure Note Interface, Rad Results In - 11/04/2020 4:15 PM CDT Patient: LESTER GAMBLE Sex#: M #: 1995 Josh#: [id number] Location: [address] [id number] Ordering Provider: JACKELYN WILLS Procedure Requested: [id number] CT HEAD WO CONTRAST Exam Ordered: 11/04/2020 [...] CT face report for further details. The rail transit operator topogram shows no lytic lesion or fracture. IMPRESSION Impression: No acute intracranial process. READING SITE: [facility]. ATTESTATION STATEMENT: The Staff Radiologist has personally reviewed the images and dictated, reviewed, or edited the final report. Performing Organization Address City/State/ZIP Code P anne Number ISAIAH * CT Cervical Spine wo contrast (11/04/2020 3:36 PM CDT) Specimen Impressions Performed At Impression: ISAIAH No acute osseous abnormality of the cer vical spine. READING SITE: [facility]. ATTESTATION STATEMENT: The Staff Radiologist has personally re viewed the images and dictated, reviewed, or edited the final report. Narrative Performed At Patient: LESTER GAMBLE Sex#: M #: 1995 Josh# : [id number] Location: [address] ICU [id number] Acces coretta#: [id number] Ordering Provider: JACKELYN WILLS Procedure Requested: [id number] CT CERVI PHILLIP SPINE WO CONTRAST Exam [...] LESTER GAMBLE Sex#: M #: 1995 Josh#: [id number] Location: [address] ICU [place] [address] Ordering Provider: JACKELYN WILLS Procedure Requested: [id number] CT CERVICAL SPINE WO CONTRAST Exam Ordered: [...] abnormality of the cervical spine. READING SITE: [facility]. ATTESTATION STATEMENT: The Staff Radiologist has personally [...] laboratories. Specimen NASOPHARYNGEAL SWAB Performing Organization Address City/[facility]/ZIP Code P anne Number [address] [address] LABORATORIES [facility] [address] [place] [address] * Toxicology Screening Panel (11/04/2020 3:32 PM CDT) Tetrahydrocanna Present (A) Not Detected [facility] binol Urine [facility] Lab Phencyclidine Not Detected Not Detected [facility] Lab Cocaine Urine Not Detected Not Detected [facility] Methamphetamine Not Detected Not Detected [facility] Lab Opiates Urine Not DetectedComment: This drug Not Detected [facility] provides presumptive Hospital Lab results for medical purposes only. False positive results may occur. Physicians should order confirmatory testing on this sample if the results are considered clinically significant. Amphetamines Not Detected Not Detected [facility] Lab Benzodiazepines Not Detected Not Detected [facility] Lab Tricyclic Not Detected Not Detected [facility] Lab Methadone Urine Not Detected Not Detected [facility] Barbiturates Not Detected Not Detected [facility] Lab Oxycodone Urine Not Detected Not Detected [facility] Comment: Hospital Lab Toxicology cutoff values: Assay Cutoff value Assay Cutoff value Amphetamines 500 ng/mL Methamphetamines 500 ng/mL Barbiturates 200 ng/mL Opiates 100 ng/mL Benzodiazepines 150 ng/mL Oxycodone 100 ng/mL Cocaine 150 ng/mL Phencyclidine 25 ng/mL Methadone 200 ng/mL THC 50 ng/mL Tricyclic Antidepressants 300 ng/mL Specimen Urine Performing Organization Address City/[facility]/ZIP Code P anne Number [address] [address] LABORATORIES [facility] [address] [place] [address] * XR Pelvis one or two views (11/04/2020 3:32 PM CDT) Specimen Impressions Performed At No radiographic evidence of acute fracture. ISAIAH READING SITE: [facility] Narrative Performed At Patient: LESTER GAMBLE ISAIAH Sex#: M #: 1995 Josh# : [id number] Location: [facility] ED R1 Ordering Provider: JACKELYN WILLS Procedure Requested: [id number] XR PELVI S ONE OR TWO VIEWS [...] LESTER GAMBLE Sex#: Ronaldo #: 1995 Josh#: [id number] Location: [facility] ED R1 Ordering Provider: JACKELYN WILLS Procedure Requested: [id number] XR PELVIS ONE OR TWO VIEWS Exam [...] radiographic evidence of acute fracture. READING SITE: [facility] Performing Organization Address City/State/ZIP Code P anne Number [facility] * Clotting Screen (11/04/2020 3:30 PM CDT) Protime 13.1 11.4 - 15.0 sec [facility] INR 1.0 0.8 - 1.2 [facility] APTT 25 22 - 34 sec [facility] Specimen Blood Performing Organization Address City/State/ZIP Code P anne Number [facility] [address] [place] [address] LABORATORIES [facility] [address] [place] [address] * Antibody Screen (11/04/2020 3:30 PM CDT) Pathologist [facility] Antibody Screen Negative Negative [facility] Specimen Blood Performing Organization Address City/[facility]/ZIP Code P anne Number [facility] [address] [place] [address] LABORATORIES [facility] [address] [place] [address] * Troponin (11/04/2020 3:30 PM CDT) [facility] Troponin 0.39 (H) 0.00 - 0.03 ng/mL [facility] Comment: Hospital Lab Troponin Value Interpretation 0.00 - 0.03 Healthy 0.04 - 0.12 Increased Cardiac Risk >0.12 Myocardial Infarction Troponin may not become elevated until 6 to 8 hours after onset of symptoms. Specimen Blood Performing Organization Address City/[facility]/ZIP Code P anne Number [facility] [address] [place] [address] LABORATORIES [facility] [address] [place] [address] * Lipase (11/04/2020 3:30 PM CDT) Pathologist [facility] Lipase 248 23 - 300 IU/L [facility] Specimen Blood Performing Organization Address City/State/ZIP Code P anne Number [facility] [address] [place] [address] LABORATORIES [facility] [address] [place] [address] * Lactate Venous WB - 0hr STAT (11/04/2020 3:30 PM CDT) Pathologist [facility] Lactate Venous 3.7 (H) 0.0 - 2.0 mmol/L [facility] Specimen Blood Performing Organization Address City/[facility]/ZIP Code P anne Number [facility] [address] [place] [address] LABORATORIES [facility] [address] [place] [address] * Creatine Kinase (11/04/2020 3:30 PM CDT) Creatine Kinase 179 IU/L [facility]: Hospital Lab White Female: 30 - 160 IU/L Black Female: 30 - 430 IU/L White Male: 40 - 425 IU/L Black Male: 50 - 850 IU/L Specimen Blood Performing Organization Address City/State/ZIP Code P anne Number [address] [address] LABORATORIES [facility] [address] [place] [address] * Comprehensive Metabolic Panel (11/04/2020 3:30 PM CDT) Pathologist [facility] Sodium 141 133 - 147 MEQ/L [facility] Potassium 4.9 3.5 - 5.3 MEQ/L [facility] Chloride 106 96 - 112 MEQ/L [facility] Lab Carbon Dioxide 23 20 - 32 MEQ/L [facility] Anion Gap 12 5 - 17 [facility] Calcium 8.5 8.4 - 10.5 mg/dL [facility] Glucose 85 70 - 100 mg/dL [facility] Protein Total 6.7 6.0 - 8.2 g/dL [facility] Lab Albumin 4.1 3.5 - 5.0 g/dL [facility] Alkaline 98 42 - 140 IU/L [facility] Lab Alanine 21 0 - 49 IU/L [facility] Lab e Aspartate 45 15 - 46 IU/L [facility] Lab e Bilirubin Total 2.7 (H) 0.2 - 1.3 mg/dL [facility] Lab Blood Urea 13 7 - 26 mg/dL [facility] Lab Creatinine 0.9 0.6 - 1.3 mg/dL [facility] Lab eGFR Male AA 123 60 - 200 [facility] mL/min/1.73sq [facility] Lab eGFR Male 102 60 - 200 [facility] Non- mL/min/1.73sq [facility] Lab Specimen Blood Performing Organization Address City/State/ZIP Code P anne Number [facility] [address] [place] [address] LABORATORIES [facility] [address] [place] [address] * CBC and Diff (manual diff if necessary) (11/04/2020 3:30 PM CDT) WBC 29.27 (H) 4.00 - 11.00 TH/uL [facility] Lab RBC 5.53 4.31 - 5.84 MIL/uL [facility] Lab Hemoglobin 17.7 (H) 13.0 - 17.0 g/dL [facility] Hematocrit 53 (H) 40 - 50 % [facility] MCV 95 80.0 - 99.0 fL [facility] MCH 32 27.0 - 34.0 pg [facility] MCHC 34 32 - 36 % [facility] RDW 13.0 11.5 - 14.5 % [facility] Platelet Count 229 140 - 400 TH/uL [facility] MPV 10.8 9.4 - 12.3 fL [facility] Nucleated RBCs 0 0 - 0 /100 [facility] % Neutrophils 78 45 - 78 % [facility] %Lymphocytes 16 15 - 47 % [facility] % Monocytes 4 0 - 12 % [facility] %Eosinophils 1 0 - 7 % [facility] %Basophils 0 0 - 2 % [facility] % Imm Grans 1 0 - 1 % [facility] # Granulocytes 22.83 (H) 1.70 - 6.80 TH/uL [facility] # Lymphocytes 4.68 (H) 1.00 - 3.30 TH/uL [facility] # Monocytes 1.17 (H) 0.20 - 0.90 TH/uL [facility] # Eosinophils 0.29 0.00 - 0.40 TH/uL [facility] # Basophils 0.11 (H) 0.00 - 0.10 TH/uL [facility] Vacuolated Present (A) Absent [facility] Lab Specimen Blood Performing Organization Address City/State/ZIP Code P anne Number [facility] [address] [place] [address] LABORATORIES [facility] [address] [place] [address] * Amylase (11/04/2020 3:30 PM CDT) Amylase 253 (H) 30 - 130 IU/L [facility] Specimen Blood Performing Organization Address City/State/ZIP Code P anne Number [facility] [address] [place] [address] LABORATORIES [facility] [address] [place] [address] * Alcohol Serum (11/04/2020 3:30 PM CDT) Alcohol Serum <10 0 - 9 mg/dL [facility] Specimen Blood Performing Organization Address City/[facility]/ZIP Code P anne Number [facility] [address] [place] [address] LABORATORIES [facility] [address] [place] [address] * ABORH Type (11/04/2020 3:30 PM CDT) ABORH Type B Positive [facility] Specimen Blood Performing Organization Address City/[facility]/ZIP Code P anne Number [facility] [address] [place] [address] LABORATORIES [facility] [address] [place] [address] from Last 3 Months Insurance Type Payer Benefit Subscriber ID Effective Phone Address Plan / Dates Group Medicare MEDICARE MEDICARE [id number] 2016-P [place] PART [place] B [place], [place] Advance Directives For more information, please contact: [phone] 

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
== END 2020-11-09 20:06 | disposition home or self-care (01) ==
LOC: EDUNIT# 12:21 → ER 12:23
DX: R07.89 Other chest pain (principal); G40.909 Epilepsy, unspecified, not intractable, without status epilepticus; I10 Essential (primary) hypertension; F17.210 Nicotine dependence, cigarettes, uncomplicated; Z20.822 Contact with and (suspected) exposure to COVID-19; Z79.899 Other long term (current) drug therapy
CPT/HCPCS: 36415; 71046; 71275; 80053; 82947; 83735; 83874; 83880; 84484; 85025; 85379; 85610; 85730; 86141; 87636; 93005; 93041

== ENCOUNTER 2021-03-05 18:12 | Emergency (ER) | payer MEDICARE ==
[~2021-03-05] VITALS: Ht 163.6 cm; Wt 54.4 kg
[~2021-03-05 18:12] MED LIST changes: +AZIT250T12 PO
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
[2021-03-05] MEDS ORDERED: IOHEXOL 350 MG/ML 100 ML (OMNIPAQUE 350) VIAL IV ONE (18:45)
[2021-03-05] MEDS ORDERED: NS 100 ML (IVPB) BAG IV ONE (18:45)
[2021-03-05] MEDS ORDERED: HOLD METFORMIN - RECEIVED CONTRAST 20 ML VIAL IV SCH (18:45)
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
[2021-03-05 18:50] LABS: HEMATOCRIT 49 % (40-54); HEMOGLOBIN 16.6 g/dL (13.3-17.7); MEAN CORPUSCULAR HEMOGLOBIN 32 pg (25-34); MEAN CORPUSCULAR HGB CONC 34 g/dL (32-36); MEAN CORPUSCULAR VOLUME 94 fL (80-99); MEAN PLATELET VOLUME 10.8 fL (9.0-12.2); PLATELET COUNT 261 10^3/uL (130-400); WHITE BLOOD COUNT 12.1 10^3/uL (4.3-11.0)
[2021-03-05 18:56] LABS: ALBUMIN 4.8 GM/DL (3.2-4.5); CHLORIDE 105 MMOL/L (98-107); POTASSIUM 3.3 MMOL/L (3.6-5.0); SODIUM 143 MMOL/L (135-145)
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
[2021-03-05 18:57] LABS: CALCIUM 9.7 MG/DL (8.5-10.1)
[2021-03-05 18:58] LABS: FIBRIN DEGRADATION PRODUCTS 0.51 UG/ML (0.00-0.49); INR 0.9 (0.8-1.4); PROTHROMBIN TIME PATIENT 12.6 SEC (12.2-14.7)
[2021-03-05 18:59] LABS: GLUCOSE 104 MG/DL (70-105); TOTAL PROTEIN 7.7 GM/DL (6.4-8.2)
[2021-03-05 19:00] LABS: BILIRUBIN,TOTAL 0.7 MG/DL (0.1-1.0); CARBON DIOXIDE 26 MMOL/L (21-32)
[2021-03-05 19:02] LABS: ALKALINE PHOSPHATASE 104 U/L (40-136); CREATININE SERUM 0.96 MG/DL (0.60-1.30); PHOSPHORUS 2.3 MG/DL (2.3-4.7)
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
[2021-03-05 19:03] LABS: BUN/CREATININE RATIO 15; GFR ESTIMATED 95
[2021-03-05 19:04] LABS: BILIRUBIN,DIRECT 0.2 MG/DL (0.0-0.3); BILIRUBIN,INDIRECT 0.5 MG/DL
[2021-03-05 19:05] LABS: ALANINE AMINOTRANSFERASE 23 U/L (0-55); MAGNESIUM 1.7 MG/DL (1.6-2.4)
--- NOTE | 2021-03-05 19:14 | Diagnostic Imaging Report ---
INDICATION: foot pain. TECHNIQUE: 3 views of the right foot CORRELATION STUDY: None FINDINGS: The osseous structures of the foot are intact. Joint spaces are maintained. Alignment anatomic. Soft tissues appearing unremarkable. IMPRESSION: 1. Negative for acute findings of the foot. Dictated by: Dictated on workstation # [id number]
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
[2021-03-05 19:17] LABS: CREATINE KINASE 154 U/L (30-200)
[2021-03-05] MEDS ORDERED: KETOROLAC 30 MG/ML VIAL IVP ONE (19:30)
[2021-03-05] MEDS ORDERED: NAPR500T8 PO (19:34)
[2021-03-05] MEDS ORDERED: CYCL10TA25 PO (19:34)
[2021-03-05 19:42] LABS: VALPROIC ACID 37.5 UG/ML (50.0-100.0)
[2021-03-05 20:15] VITALS: BP 128/91
[2021-03-05 20:28] LABS: BILIRUBIN,URINE NEGATIVE (NEGATIVE); CLARITY,URINE CLEAR; COLOR,URINE YELLOW; GLUCOSE, URINE (UA) NEGATIVE (NEGATIVE); KETONES,URINE NEGATIVE (NEGATIVE); LEUKOCYTE ESTERASE ,URINE NEGATIVE (NEGATIVE); NITRITE,URINE NEGATIVE (NEGATIVE); PROTEIN,URINE NEGATIVE (NEGATIVE)
[2021-03-05 20:43] LABS: AMPHETAMINE SCREEN, URINE NEGATIVE (NEGATIVE); BARBITURATE SCREEN URINE NEGATIVE (NEGATIVE); BENZODIAZEPINES SCREEN URINE NEGATIVE (NEGATIVE); CANNABINOID SCREEN, URINE POSITIVE (NEGATIVE); COCAINE SCREEN URINE NEGATIVE (NEGATIVE); METHADONE STAT NEGATIVE (NEGATIVE); METHAMPHETAMINE SCREEN URINE S NEGATIVE (NEGATIVE); OPIATE SCREEN URINE NEGATIVE (NEGATIVE); OXYCODONE STAT NEGATIVE (NEGATIVE); PROPOXYPHENE STAT NEGATIVE (NEGATIVE); TRICYCLIC ANTIDEPRESSANTS SCRE NEGATIVE (NEGATIVE)
[2021-03-05 20:48] LABS: BACTERIA,URINE NEGATIVE /HPF
== END 2021-03-05 20:15 | disposition home or self-care (01) ==
LOC: EDUNIT# 18:12 → ER 18:13
DX: S70.02XA Contusion of left hip, initial encounter (principal); S70.12XA Contusion of left thigh, initial encounter; S30.1XXA Contusion of abdominal wall, initial encounter; G40.909 Epilepsy, unspecified, not intractable, without status epilepticus; Z79.899 Other long term (current) drug therapy; V19.9XXA Pedal cyclist (driver) (passenger) injured in unspecified traffic accident, initial encounter
CPT/HCPCS: 70450; 71045; 71260; 72125; 72128; 72131; 72170; 73552; 73630; 74177; 80048; 80076; 80164; 80306; 81000; 82550; 83605; 83735; 83880; 84100; 84484; 85027; 85379; 85610; 85730; 86850; 86900; 86901; 93005; 93041; 96374; 99284; G0480; 36415; 80320

== ENCOUNTER 2021-10-10 22:48 | Emergency (ER) | payer MEDICARE ==
[~2021-10-10] VITALS: Ht 152 cm; Wt 49.0 kg
[~2021-10-10 22:48] MED LIST changes: +CYCL10TA25 PO; +NAPR500T8 PO
[2021-10-10 23:26] LABS: BASOPHILS % (AUTO) 0 % (0-10); EOSINOPHILS % (AUTO) 0 % (0-10); HEMATOCRIT 44 % (40-54); HEMOGLOBIN 15.2 g/dL (13.3-17.7); LYMPHOCYTES # (AUTO) 0.5 10^3/uL (1.0-4.0); LYMPHOCYTES % (AUTO) 8 % (12-44); MEAN CORPUSCULAR HEMOGLOBIN 32 pg (25-34); MEAN CORPUSCULAR HGB CONC 35 g/dL (32-36); MEAN CORPUSCULAR VOLUME 93 fL (80-99); MEAN PLATELET VOLUME 9.7 fL (9.0-12.2); MONOCYTES # (AUTO) 0.8 10^3/uL (0.0-1.0); MONOCYTES % (AUTO) 12 % (0-12); NEUTROPHILS # (AUTO) 5.2 10^3/uL (1.8-7.8); NEUTROPHILS % (AUTO) 79 % (42-75); PLATELET COUNT 156 10^3/uL (130-400); WHITE BLOOD COUNT 6.5 10^3/uL (4.3-11.0)
[2021-10-10 23:38] LABS: LYMPHOCYTES % (MANUAL) 8 %; MONOCYTES % (MANUAL) 18 %; NEUTROPHILS % (MANUAL) 74 %; RBC MORPH NORMAL
[2021-10-10 23:40] LABS: ALBUMIN 4.4 GM/DL (3.2-4.5)
[2021-10-10 23:41] LABS: CHLORIDE 107 MMOL/L (98-107); POTASSIUM 3.4 MMOL/L (3.6-5.0); SODIUM 140 MMOL/L (135-145)
[2021-10-10 23:42] LABS: CALCIUM 9.2 MG/DL (8.5-10.1)
[2021-10-10 23:43] LABS: GLUCOSE 99 MG/DL (70-105); TOTAL PROTEIN 6.8 GM/DL (6.4-8.2)
[2021-10-10 23:44] LABS: CARBON DIOXIDE 21 MMOL/L (21-32)
[2021-10-10 23:46] LABS: ALKALINE PHOSPHATASE 81 U/L (40-136)
[2021-10-10 23:47] LABS: GFR ESTIMATED 124
[2021-10-10 23:48] LABS: BUN/CREATININE RATIO 15
[2021-10-10 23:50] LABS: ALANINE AMINOTRANSFERASE 16 U/L (0-55); CREATINE KINASE 131 U/L (30-200); MAGNESIUM 1.8 MG/DL (1.6-2.4)
[2021-10-10 23:56] LABS: CREATINE KINASE MB 0.3 NG/ML (<6.6)
[2021-10-11] MEDS ORDERED: LACTATED RINGERS 1,000 ML IV ONE
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
[2021-10-11 01:22] LABS: AMPHETAMINE SCREEN, URINE NEGATIVE (NEGATIVE); BARBITURATE SCREEN URINE NEGATIVE (NEGATIVE); BENZODIAZEPINES SCREEN URINE NEGATIVE (NEGATIVE); CANNABINOID SCREEN, URINE POSITIVE (NEGATIVE); COCAINE SCREEN URINE NEGATIVE (NEGATIVE); METHADONE STAT NEGATIVE (NEGATIVE); OPIATE SCREEN URINE NEGATIVE (NEGATIVE); OXYCODONE STAT NEGATIVE (NEGATIVE); PROPOXYPHENE STAT NEGATIVE (NEGATIVE); TRICYCLIC ANTIDEPRESSANTS SCRE NEGATIVE (NEGATIVE)
[2021-10-11 02:27] VITALS: BP 109/71
== END 2021-10-11 02:27 | disposition home or self-care (01) ==
LOC: EDUNIT# 22:48 → ER 22:49
DX: U07.1 COVID-19 (principal)
CPT/HCPCS: 80053; 80164; 80306; 82550; 82553; 83735; 85007; 85027; 87636; 99284; G0480; 36415; 80320

== ENCOUNTER 2022-04-16 12:08 | Emergency (ER) | payer MEDICARE ==
[~2022-04-16] VITALS: Ht 162 cm; Wt 50.0 kg
[2022-04-16] MEDS ORDERED: ARIP5TAB57 PO (12:26)
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
[2022-04-16] MEDS ORDERED: DIVALPROEX 250 MG DELAYED RELEASE (DEPAKOTE) TAB PO SCH (13:30)
[2022-04-16 13:39] VITALS: BP 114/70
== END 2022-04-16 13:39 | disposition home or self-care (01) ==
LOC: EDUNIT# 12:08 → ER 12:08
DX: G40.909 Epilepsy, unspecified, not intractable, without status epilepticus (principal); S00.512A Abrasion of oral cavity, initial encounter; S90.411A Abrasion, right great toe, initial encounter; F17.210 Nicotine dependence, cigarettes, uncomplicated; Z28.310 Unvaccinated for COVID-19; W18.30XA Fall on same level, unspecified, initial encounter
CPT/HCPCS: 36415; 80164; 99283

== ENCOUNTER 2022-04-27 10:31 | Emergency (ER) | payer MEDICARE ==
[~2022-04-27] VITALS: Ht 170 cm; Wt 54.0 kg
[~2022-04-27 10:31] MED LIST changes: +ARIP5TAB57 PO
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
[2022-04-27] MEDS ORDERED: IBUPROFEN 600 MG (MOTRIN) TAB PO ONE (11:30)
--- NOTE | 2022-04-27 11:35 | Diagnostic Imaging Report ---
Indication: Injury, right-sided pain. 3 view left hand performed, the distal radius and ulna intact. The proximal distal carpal rows, the metacarpals and phalanges intact. No fracture or dislocation. No gas or opaque foreign body. Impression: Unremarkable 3 views of the left hand. Dictated by: Dictated on workstation # [id number]
[2022-04-27] MEDS ORDERED: IBUP-1773 PO ×2 (12:06→12:12)
[2022-04-27 12:11] VITALS: BP 115/65
== END 2022-04-27 12:12 | disposition home or self-care (01) ==
LOC: EDUNIT# 10:35 → ER 10:37
DX: S00.531A Contusion of lip, initial encounter (principal); S60.222A Contusion of left hand, initial encounter; F17.210 Nicotine dependence, cigarettes, uncomplicated; Z28.310 Unvaccinated for COVID-19; Y04.8XXA Assault by other bodily force, initial encounter
CPT/HCPCS: 73130

== ENCOUNTER 2022-05-07 11:24 | Emergency (ER) | payer MEDICARE ==
[~2022-05-07] VITALS: Ht 165 cm; Wt 56.0 kg
[~2022-05-07 11:24] MED LIST changes: +IBUP-1773 PO
[2022-05-07 11:39] LABS: BASOPHILS % (AUTO) 0 % (0-10); EOSINOPHILS # (AUTO) 0.3 10^3/uL (0.0-0.3); EOSINOPHILS % (AUTO) 3 % (0-10); HEMATOCRIT 44 % (40-54); HEMOGLOBIN 15.1 g/dL (13.3-17.7); LYMPHOCYTES # (AUTO) 4.4 10^3/uL (1.0-4.0); LYMPHOCYTES % (AUTO) 49 % (12-44); MEAN CORPUSCULAR HEMOGLOBIN 32 pg (25-34); MEAN CORPUSCULAR HGB CONC 34 g/dL (32-36); MEAN CORPUSCULAR VOLUME 94 fL (80-99); MEAN PLATELET VOLUME 10.7 fL (9.0-12.2); MONOCYTES # (AUTO) 0.5 10^3/uL (0.0-1.0); MONOCYTES % (AUTO) 5 % (0-12); NEUTROPHILS # (AUTO) 3.7 10^3/uL (1.8-7.8); NEUTROPHILS % (AUTO) 42 % (42-75); PLATELET COUNT 167 10^3/uL (130-400); WHITE BLOOD COUNT 8.9 10^3/uL (4.3-11.0)
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
[2022-05-07 11:53] LABS: ALBUMIN 4.3 GM/DL (3.2-4.5); CHLORIDE 106 MMOL/L (98-107); POTASSIUM 3.7 MMOL/L (3.6-5.0); SODIUM 140 MMOL/L (135-145)
[2022-05-07 11:54] LABS: CALCIUM 8.8 MG/DL (8.5-10.1)
[2022-05-07 11:55] LABS: GLUCOSE 142 MG/DL (70-105)
[2022-05-07 11:56] LABS: CARBON DIOXIDE 18 MMOL/L (21-32); TOTAL PROTEIN 6.6 GM/DL (6.4-8.2)
[2022-05-07 11:57] LABS: BILIRUBIN,TOTAL 1.1 MG/DL (0.1-1.0)
[2022-05-07 11:59] LABS: ALKALINE PHOSPHATASE 110 U/L (40-136); CREATININE SERUM 0.86 MG/DL (0.60-1.30); GFR ESTIMATED 122
[2022-05-07 12:00] LABS: BUN/CREATININE RATIO 13
[2022-05-07 12:02] LABS: ALANINE AMINOTRANSFERASE 16 U/L (0-55)
[2022-05-07 12:08] LABS: VALPROIC ACID 30.5 UG/ML (50.0-100.0)
[2022-05-07] MEDS ORDERED: KETOROLAC 15 MG/ML VIAL IVP ONE (12:15)
[2022-05-07] MEDS ORDERED: DIVALPROEX 250 MG DELAYED RELEASE (DEPAKOTE) TAB PO ONE (12:15)
[2022-05-07] MEDS ORDERED: NS IV 1000 ML 1,000 ML IV SCH (12:30)
[2022-05-07] MEDS ORDERED: LORazepam INJ 2 MG/ML (ATIVAN) VIAL ONE (14:00)
[2022-05-07 14:24] LABS: BILIRUBIN,URINE NEGATIVE (NEGATIVE); CLARITY,URINE CLEAR; COLOR,URINE YELLOW; GLUCOSE, URINE (UA) NEGATIVE (NEGATIVE); KETONES,URINE NEGATIVE (NEGATIVE); LEUKOCYTE ESTERASE ,URINE NEGATIVE (NEGATIVE); NITRITE,URINE NEGATIVE (NEGATIVE); PROTEIN,URINE NEGATIVE (NEGATIVE)
[2022-05-07] MEDS ORDERED: LORazepam INJ 2 MG/ML (ATIVAN) VIAL IVP ONE (14:30)
[2022-05-07 14:31] LABS: BACTERIA,URINE NEGATIVE /HPF; WBC,URINE RARE /HPF
[2022-05-07 14:38] LABS: AMPHETAMINE SCREEN, URINE NEGATIVE (NEGATIVE); BARBITURATE SCREEN URINE NEGATIVE (NEGATIVE); BENZODIAZEPINES SCREEN URINE NEGATIVE (NEGATIVE); CANNABINOID SCREEN, URINE POSITIVE (NEGATIVE); COCAINE SCREEN URINE NEGATIVE (NEGATIVE); METHADONE STAT NEGATIVE (NEGATIVE); OPIATE SCREEN URINE NEGATIVE (NEGATIVE); OXYCODONE STAT NEGATIVE (NEGATIVE); PROPOXYPHENE STAT NEGATIVE (NEGATIVE); TRICYCLIC ANTIDEPRESSANTS SCRE NEGATIVE (NEGATIVE)
[2022-05-07] MEDS ORDERED: LEVE500T99 PO ×3 (17:38→18:16)
[2022-05-07 18:10] VITALS: BP 94/51
== END 2022-05-07 18:10 | disposition home or self-care (01) ==
LOC: EDUNIT# 11:24 → ER 11:25
DX: S60.511A Abrasion of right hand, initial encounter (principal); G40.409 Other generalized epilepsy and epileptic syndromes, not intractable, without status epilepticus; T42.76XA Underdosing of unspecified antiepileptic and sedative-hypnotic drugs, initial encounter; Z91.A3 Caregiver's unintentional underdosing of patient's medication regimen; W18.30XA Fall on same level, unspecified, initial encounter
CPT/HCPCS: 80053; 80164; 80306; 81000; 82947; 83605; 85025; 99283; G0480; 36415; 80320; 93005

== ENCOUNTER 2022-06-05 14:56 | Emergency (ER) | payer MEDICARE ==
[~2022-06-05] VITALS: Ht 152 cm; Wt 54.4 kg
[~2022-06-05 14:56] MED LIST changes: +LEVE500T99 PO
--- NOTE | 2022-06-05 15:31 | ED General ---
General Chief Complaint: Glucose Problems Stated Complaint: LOW BLOOD SUGAR Nursing Triage Note: PT PRESENTS TO ED VIA EMS FROM [facility] WHERE HE COMPLAINED TO SOMEONE HE WAS FEELING LIGHTHEADED/DIZZY AND DIAPHORETIC. ACCORDING TO EMS PT INITIAL BS WAS IN THE 60'S. EMS REPORTS GIVING PT ORAL GLUCOSE, WITH HIS LAST BS BEING IN THE 80S. PT ALSO REPORTS NECK PAIN Source of Information: Patient Exam Limitations: No Limitations History of Present Illness Date Seen by Provider: Jun 05, 2022 Time Seen by Provider: 15:02 Initial Comments Patient presents to the emergency department via EMS from [facility]. He states he began to get shaky and thought his blood sugar might be low because he had not eaten today. He found a dip lube operator who was shopping in [facility] and asked to check his blood sugar. It was found to be in the 60s. He was given oral glucose by paramedics and repeat blood sugars in the 80s. He states he did eat today because he just forgot. He is feeling much better. He is not diabetic. No fever chills or recent illness. All other systems reviewed and negative except documented per HPI. Voice recognition software was used to help create this chart Allergies and Home Medications Allergies Coded Allergies: No Known Drug Allergies (Unverified , 09/07/19) Patient Home Medication List Home Medication List Reviewed: Yes Aripiprazole (Aripiprazole) 5 Mg Tablet, 5 MG PO DAILY, (Reported) Entered as Reported by: SHABBIR FORTUNE on 04/16/22 1226 Azithromycin (Azithromycin) 250 Mg Tablet, 250 MG PO DAILY Prescribed by: VIRAL HERNANDEZ on 11/09/201948 Cyclobenzaprine HCl (Cyclobenzaprine HCl) 10 Mg Tablet, 10 MG PO Q8H PRN for SPASMS Prescribed by: GREG HYMAN on 03/05/21 193 Divalproex Sodium (Divalproex Sodium) 125 Mg Tablet.dr, 250 MG PO BID Prescribed by: CLEMENTE PEREZ on 09/07/19 1345 Ibuprofen (Ibuprofen) 600 Mg Tablet, 600 MG PO Q6H PRN for PAIN-MILD Prescribed by: Fabien Robles on 04/27/22 1212 Levetiracetam (Keppra) 500 Mg Tablet, 500 MG PO BID Prescribed by: Aleja Martin on 05/07/221815 Naproxen (Naproxen) 500 Mg Tablet.dr, 500 MG PO BID Prescribed by: GREG HYMAN on 03/05/211933 Review of Systems Review of Systems Constitutional: no symptoms reported Past Zfnhzwi-Wvmumi-Vetwdx Hx Patient Social History Tobacco Use?: Yes Smoking Status: Unknown if Ever Smoked Use of E-Cig and/or Vaping dev: No Substance use?: Yes Substance type: Marijuana Alcohol Use?: Unable to obtain Pt feels they are or have been: No Immunizations Up To Date Tetanus Booster (TDap): Unknown Seasonal Allergies Seasonal Allergies: No Past Medical History Surgery/Hospitalization HX: SEIZURES Surgeries: Yes Abdominal Respiratory: No Cardiac: No Neurological: Yes (DEVELOPMENTAL DELAY) Developmental Disorder, Seizure Disorder, Traumatic Brain Injury Genitourinary: No Gastrointestinal: No Musculoskeletal: No Endocrine: No HEENT: No Cancer: No Psychosocial: No Integumentary: No Blood Disorders: No Family Medical History Reviewed Nursing Family Hx No Pertinent Family Hx 11/04/20--DROWING IN POOL, ( FELT TO BE DUE TO SEIZURE--PT WITH PRIOR HISTORY OF SEIZURE DISORDER AND SOME DEVELOPMENTAL DELAY)-- S/P CARDIOPULMONARY ARREST WITH SUCCESSFUL RESUSCITATION AND TRANSFERRED TO [facility]. DID NOT REQUIRE ANY PROLONGED HOSPITALIZATION--WAS HOSPITALIZED ONLY A COUPLE OF DAYS . Physical Exam Vital Signs Vital Signs - First Documented 06/05/22 14:57 Temp 36.0 Pulse 58 Resp 18 B/P (MAP) 149/83 (105) Pulse Ox 97 Capillary Refill : Less Than 3 Seconds Height, Weight, BMI Height: '" Weight: lbs. oz. kg; 23.00 BMI Method: General Appearance: No Apparent Distress, WD/WN Eyes: Bilateral Eye Normal Inspection, Bilateral Eye PERRL, Bilateral Eye EOMI HEENT: PERRL/EOMI, Normal ENT Inspection, Pharynx Normal Neck: Normal Inspection, Non Tender, Supple Respiratory: Chest Non Tender, Lungs Clear, Normal Breath Sounds, No Accessory Muscle Use, No Respiratory Distress Cardiovascular: Regular Rate, Rhythm, No Murmur, Normal Peripheral Pulses Gastrointestinal: Normal Bowel Sounds, No Organomegaly, No Pulsatile Mass, Non Tender, Soft Back: Normal Inspection Extremity: Normal Capillary Refill, Normal Inspection, Normal Range of Motion, No Calf Tenderness Neurologic/Psychiatric: Alert, Oriented x3, No Motor/Sensory Deficits, Normal Mood/Affect Skin: Normal Color, Warm/Dry Procedures/Interventions Date of ETT Placement: Nov 04, 2020 Time of ETT Placement: 1042 Progress/Results/Core Measures Suspected Sepsis SIRS Temperature: Pulse: 58 Respiratory Rate: 18 Blood Pressure 149 /83 Mean: 105 Results/Orders My Orders Orders - EYAL GEREN DO General/Regular (06/05/22 Lunch) Vital Signs/I&O 06/05/22 14:57 Temp 36.0 Pulse 58 Resp 18 B/P (MAP) 149/83 (105) Pulse Ox 97 Capillary Refill : Less Than 3 Seconds Blood Pressure Mean: 105 Departure Communication (Admissions) Patient is hemodynamically stable. States he still feels little shaky on arrival however he is otherwise asymptomatic. No recent illnesses. He is not diabetic. He states he has been at home today which is likely the source of his transient hypoglycemia. Blood sugar stable here. We let him eat a meal and checked blood glucose after observation and was 115. No evidence of infectious process causing hypoglycemia. He is not known to be diabetic. His vital signs are normal. I do not think there is any indication for further lab evaluation here. Discharged in stable condition. Impression Primary Impression: Encounter for medical screening examination Disposition: HOME, SELF-CARE Condition: Stable Departure-Patient Inst. Referrals: [facility]/ (PCP) Primary Care Physician TON KELLEY APRN (Family) Primary Care Physician Add. Discharge Instructions: Her blood sugar was likely low today because she had not eaten. Please maintain a normal diet. Follow-up with your primary doctor should your symptoms persist. Return to the emergency department for any severe concerns. All discharge instructions reviewed with patient and/or family. Voiced understanding. EYAL GREEN DO Jun 05, 2022 15:31
[2022-06-05 16:33] VITALS: BP 149/83
== END 2022-06-05 16:33 | disposition home or self-care (01) ==
LOC: EDUNIT# 14:56 → ER 14:57
DX: Z00.00 Encounter for general adult medical examination without abnormal findings (principal)
CPT/HCPCS: 82947

== ENCOUNTER 2022-07-24 22:39 | Emergency (ER) | payer MEDICARE ==
[~2022-07-24] VITALS: Ht 152 cm; Wt 50.6 kg
[2022-07-24] MEDS ORDERED: KETOROLAC 30 MG/ML VIAL IVP ONE (23:30)
[2022-07-24 23:33] LABS: BASOPHILS % (AUTO) 0 % (0-10); EOSINOPHILS # (AUTO) 0.3 10^3/uL (0.0-0.3); EOSINOPHILS % (AUTO) 2 % (0-10); HEMATOCRIT 43 % (40-54); LYMPHOCYTES # (AUTO) 4.6 10^3/uL (1.0-4.0); LYMPHOCYTES % (AUTO) 32 % (12-44); MEAN CORPUSCULAR HEMOGLOBIN 32 pg (25-34); MEAN CORPUSCULAR HGB CONC 35 g/dL (32-36); MEAN CORPUSCULAR VOLUME 92 fL (80-99); MEAN PLATELET VOLUME 10.2 fL (9.0-12.2); MONOCYTES # (AUTO) 0.9 10^3/uL (0.0-1.0); MONOCYTES % (AUTO) 6 % (0-12); NEUTROPHILS # (AUTO) 8.5 10^3/uL (1.8-7.8); NEUTROPHILS % (AUTO) 59 % (42-75); PLATELET COUNT 185 10^3/uL (130-400); WHITE BLOOD COUNT 14.4 10^3/uL (4.3-11.0)
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
[2022-07-24 23:42] LABS: ALBUMIN 4.1 GM/DL (3.2-4.5); POTASSIUM 3.7 MMOL/L (3.6-5.0)
[2022-07-24 23:44] LABS: TOTAL PROTEIN 6.5 GM/DL (6.4-8.2)
[2022-07-24 23:46] LABS: BILIRUBIN,TOTAL 0.7 MG/DL (0.1-1.0)
[2022-07-24 23:48] LABS: CREATININE SERUM 0.8 MG/DL (0.60-1.30)
[2022-07-24 23:57] LABS: EOSINOPHILS % (MANUAL) 6 %; LYMPHOCYTES % (MANUAL) 29 %; MONOCYTES % (MANUAL) 3 %; NEUTROPHILS % (MANUAL) 61 %; RBC MORPH NORMAL
[2022-07-25] MEDS ORDERED: RX-MUPIROCIN (BACTROBAN) 2% OINT 22 GM TUBE TOP STA (00:01)
[2022-07-25] MEDS ORDERED: cefTRIAXone IV/IM 1,000 MG in NS (IVPB) 50 ML IV STA (00:01)
[2022-07-25] MEDS ORDERED: CLINDAMYCIN 150 MG (CLEOCIN) CAP PO ONE (00:15)
[2022-07-25] MEDS ORDERED: CLIN-144 PO (00:36)
[2022-07-25 01:01] VITALS: BP 111/69
--- NOTE | 2022-07-25 08:27 | Diagnostic Imaging Report ---
EXAMINATION: Left hand radiograph EXAM DATE: 07/25/2022 12:25 AM COMPARISON: None available. HISTORY: hand pain TECHNIQUE: 3 views FINDINGS: There is no acute fracture, dislocation, or destructive osseous process. The joint spaces are normal. The soft tissues are normal. IMPRESSION: 1. No acute osseous abnormality. Dictated by: Dictated on workstation # [id number]
== END 2022-07-25 01:01 | disposition home or self-care (01) ==
LOC: EDUNIT# 22:39 → ER 22:42
DX: L08.9 Local infection of the skin and subcutaneous tissue, unspecified (principal); R79.82 Elevated C-reactive protein (CRP); F17.290 Nicotine dependence, other tobacco product, uncomplicated; Z28.310 Unvaccinated for COVID-19
CPT/HCPCS: 36415; 73130; 80053; 85007; 85027; 86141

== ENCOUNTER 2022-09-23 16:23 | Emergency (ER) | payer MEDICARE ==
[~2022-09-23 16:23] MED LIST changes: +CLIN-144 PO
[2022-09-23] MEDS ORDERED: NS IV 1000 ML 1,000 ML IV STA (16:32)
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
[2022-09-23 16:38] LABS: BASOPHILS % (AUTO) 0 % (0-10); EOSINOPHILS # (AUTO) 0.3 10^3/uL (0.0-0.3); EOSINOPHILS % (AUTO) 3 % (0-10); HEMATOCRIT 45 % (40-54); HEMOGLOBIN 15.2 g/dL (13.3-17.7); LYMPHOCYTES # (AUTO) 3.6 10^3/uL (1.0-4.0); LYMPHOCYTES % (AUTO) 33 % (12-44); MEAN CORPUSCULAR HEMOGLOBIN 32 pg (25-34); MEAN CORPUSCULAR HGB CONC 34 g/dL (32-36); MEAN CORPUSCULAR VOLUME 95 fL (80-99); MEAN PLATELET VOLUME 9.5 fL (9.0-12.2); MONOCYTES # (AUTO) 0.6 10^3/uL (0.0-1.0); MONOCYTES % (AUTO) 6 % (0-12); NEUTROPHILS # (AUTO) 6.2 10^3/uL (1.8-7.8); NEUTROPHILS % (AUTO) 57 % (42-75); PLATELET COUNT 214 10^3/uL (130-400); WHITE BLOOD COUNT 10.9 10^3/uL (4.3-11.0)
[2022-09-23 16:47] LABS: ALBUMIN 4.4 GM/DL (3.2-4.5); CHLORIDE 108 MMOL/L (98-107); POTASSIUM 3.7 MMOL/L (3.6-5.0); SODIUM 141 MMOL/L (135-145)
[2022-09-23 16:48] LABS: CALCIUM 9.3 MG/DL (8.5-10.1); INR 0.9 (0.8-1.4); PROTHROMBIN TIME PATIENT 12.2 SEC (12.2-14.7)
--- NOTE | 2022-09-23 16:49 | Diagnostic Imaging Report ---
INDICATION: Chest pain. Frontal chest obtained at 4:32 p.m. and compared to 03/05/2021. FINDINGS: Heart and mediastinal silhouette are normal in appearance. The lungs are clear. There is no pneumothorax or pleural fluid. IMPRESSION: Negative chest. Dictated by: Dictated on workstation # [id number]
[2022-09-23 16:50] LABS: GLUCOSE 87 MG/DL (70-105)
[2022-09-23 16:51] LABS: BILIRUBIN,TOTAL 0.6 MG/DL (0.1-1.0); CARBON DIOXIDE 21 MMOL/L (21-32)
[2022-09-23 16:53] LABS: ALKALINE PHOSPHATASE 118 U/L (40-136); CREATININE SERUM 1.13 MG/DL (0.60-1.30); GFR ESTIMATED 91
[2022-09-23 16:54] LABS: BUN/CREATININE RATIO 17
[2022-09-23 16:56] LABS: ALANINE AMINOTRANSFERASE 26 U/L (0-55); MAGNESIUM 1.9 MG/DL (1.6-2.4)
[2022-09-23 16:57] LABS: LIPASE 75 U/L (8-78)
[2022-09-23 17:53] VITALS: BP 113/74
== END 2022-09-23 17:54 | disposition home or self-care (01) ==
LOC: EDUNIT# 16:23 → ER 16:25
DX: R07.89 Other chest pain (principal); G40.909 Epilepsy, unspecified, not intractable, without status epilepticus
CPT/HCPCS: 36415; 71045; 80053; 80164; 83690; 83735; 83874; 83880; 84484; 85025; 85610; 85730; 93005; 93041

== ENCOUNTER 2022-09-30 00:51 | Emergency (ER) | payer MEDICARE ==
[2022-09-30 00:56] VITALS: BP 133/80
[2022-09-30] MEDS ORDERED: KETOROLAC 30 MG/ML VIAL IVP STA (00:58)
[2022-09-30] MEDS ORDERED: LACTATED RINGERS 1,000 ML IV ONE (01:00)
[2022-09-30 01:15] LABS: BASOPHILS % (AUTO) 0 % (0-10); EOSINOPHILS # (AUTO) 0.2 10^3/uL (0.0-0.3); EOSINOPHILS % (AUTO) 1 % (0-10); HEMATOCRIT 47 % (40-54); HEMOGLOBIN 16.6 g/dL (13.3-17.7); LYMPHOCYTES % (AUTO) 40 % (12-44); MEAN CORPUSCULAR HEMOGLOBIN 32 pg (25-34); MEAN CORPUSCULAR HGB CONC 36 g/dL (32-36); MEAN CORPUSCULAR VOLUME 91 fL (80-99); MEAN PLATELET VOLUME 9.5 fL (9.0-12.2); MONOCYTES # (AUTO) 0.7 10^3/uL (0.0-1.0); MONOCYTES % (AUTO) 6 % (0-12); NEUTROPHILS # (AUTO) 6.6 10^3/uL (1.8-7.8); NEUTROPHILS % (AUTO) 53 % (42-75); PLATELET COUNT 249 10^3/uL (130-400); WHITE BLOOD COUNT 12.5 10^3/uL (4.3-11.0)
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
[2022-09-30 01:21] LABS: ALBUMIN 4.7 GM/DL (3.2-4.5); CHLORIDE 105 MMOL/L (98-107); POTASSIUM 3.2 MMOL/L (3.6-5.0); SODIUM 139 MMOL/L (135-145)
[2022-09-30 01:22] LABS: CALCIUM 10.2 MG/DL (8.5-10.1)
[2022-09-30 01:23] LABS: GLUCOSE 98 MG/DL (70-105); TOTAL PROTEIN 7.3 GM/DL (6.4-8.2)
[2022-09-30 01:24] LABS: CARBON DIOXIDE 17 MMOL/L (21-32)
[2022-09-30 01:25] LABS: BILIRUBIN,TOTAL 1.1 MG/DL (0.1-1.0)
[2022-09-30 01:27] LABS: ALKALINE PHOSPHATASE 143 U/L (40-136); CREATININE SERUM 1.01 MG/DL (0.60-1.30); GFR ESTIMATED 104
[2022-09-30 01:28] LABS: BUN/CREATININE RATIO 20
[2022-09-30 01:30] LABS: ALANINE AMINOTRANSFERASE 25 U/L (0-55); MAGNESIUM 1.9 MG/DL (1.6-2.4)
[2022-09-30 01:31] LABS: CREATINE KINASE 520 U/L (30-200)
[2022-09-30 01:37] LABS: CREATINE KINASE MB 2.9 NG/ML (<6.6)
[2022-09-30] MEDS ORDERED: NS IV 1000 ML 1,000 ML IV SCH (02:00)
[2022-09-30] MEDS ORDERED: KCL 10 MEQ TAB (MICRO K) PO ONE (02:00)
[2022-09-30 02:30] LABS: BILIRUBIN,URINE NEGATIVE (NEGATIVE); CLARITY,URINE CLEAR; COLOR,URINE YELLOW; GLUCOSE, URINE (UA) NEGATIVE (NEGATIVE); KETONES,URINE TRACE (NEGATIVE); LEUKOCYTE ESTERASE ,URINE NEGATIVE (NEGATIVE); NITRITE,URINE NEGATIVE (NEGATIVE); PH,URINE 6.5 (5-9); PROTEIN,URINE NEGATIVE (NEGATIVE)
[2022-09-30 02:37] LABS: BACTERIA,URINE NEGATIVE /HPF
[2022-09-30 02:41] LABS: AMPHETAMINE SCREEN, URINE POSITIVE (NEGATIVE); BARBITURATE SCREEN URINE NEGATIVE (NEGATIVE); BENZODIAZEPINES SCREEN URINE NEGATIVE (NEGATIVE); CANNABINOID SCREEN, URINE POSITIVE (NEGATIVE); COCAINE SCREEN URINE NEGATIVE (NEGATIVE); METHADONE STAT NEGATIVE (NEGATIVE); OPIATE SCREEN URINE NEGATIVE (NEGATIVE); OXYCODONE STAT NEGATIVE (NEGATIVE); PROPOXYPHENE STAT NEGATIVE (NEGATIVE); TRICYCLIC ANTIDEPRESSANTS SCRE NEGATIVE (NEGATIVE)
--- NOTE | 2022-09-30 07:46 | Diagnostic Imaging Report ---
PELVIS WITH RIGHT HIP 2-3VIEWS INDICATION: Right hip pain COMPARISON: None available. TECHNIQUE: AP pelvis with AP and lateral views of the hip. FINDINGS: No fracture. No features of avascular necrosis of femoral head. There is an osseous bump at the head and neck junction of the proximal femur which gives a cam lesion and could predispose to femoroacetabular impingement. There are no degenerative changes within the right hip. No acetabular retroversion or development of hip dysplasia. SI joints are normal. IMPRESSION: 1. No acute osseous abnormality about the right hip. Dictated by: Dictated on workstation # [id number]
== END 2022-09-30 03:48 | disposition home or self-care (01) ==
LOC: EDUNIT# 00:51 → ER 00:54
DX: M25.551 Pain in right hip (principal); E87.6 Hypokalemia; F15.90 Other stimulant use, unspecified, uncomplicated; F12.90 Cannabis use, unspecified, uncomplicated; Z28.310 Unvaccinated for COVID-19
CPT/HCPCS: 36415; 80053; 80306; 81000; 82550; 82553; 83735; 83874; 85025; 93041

== ENCOUNTER 2022-12-01 01:35 | Emergency (ER) | payer MEDICARE ==
[~2022-12-01] VITALS: Ht 165 cm; Wt 49.0 kg
[2022-12-01 01:37] VITALS: BP 144/107
--- NOTE | 2022-12-01 01:47 | ED EENT ---
History of Present Illness General Chief Complaint: Dental Problems/Pain Stated Complaint: DENTAL PAIN Nursing Triage Note: BROUGHT IN AMBULATORY BY [facility] FOR TOP/LEFT DENTAL PAIN, PT REPORTS BEING OUT OF PAIN MEDICATIONS. Source: patient Exam Limitations: no limitations History of Present Illness Date Seen by Provider: Dec 01, 2022 Time Seen by Provider: 01:47 Initial Comments Patient is a 27yo male who presents to the ER with a complaint of left upper dental pain. He cannot state how long the pain has been going on, he cannot state when the last time he took ibuprofen was. He states the pain is so bad, it "makes me tear up". He states that [facility] has given him ibuprofen and antibiotics. He states he is not on antibiotics now. He attributes his poor memory to a history of seizures. He states that he has been smoking "alot" of cigarettes and marijuama for the pain. He is obviously very somnolent. Falls asleep mid sentence. Rousable to voice. Does appear intoxicated currently and in no distress. No known drug allergies Timing/Duration: other (unknown) Severity: severe Location: dental Prearrival Treatment: other (ibuprofen unknown quantity and timeframe) Associated Symptoms: tooth pain Allergies and Home Medications Allergies Coded Allergies: No Known Drug Allergies (Unverified , 09/07/19) Patient Home Medication List Home Medication List Reviewed: Yes Aripiprazole (Aripiprazole) 5 Mg Tablet, 5 MG PO DAILY, (Reported) Entered as Reported by: SHABBIR FORTUNE on 04/16/22 1226 Azithromycin (Azithromycin) 250 Mg Tablet, 250 MG PO DAILY Prescribed by: VIRAL HERNANDEZ on 11/09/201948 Clindamycin HCl (Clindamycin HCl) 300 Mg Capsule, 300 MG PO QID Prescribed by: CLEMENTE PEREZ on 07/25/22 0036 Cyclobenzaprine HCl (Cyclobenzaprine HCl) 10 Mg Tablet, 10 MG PO Q8H PRN for SPASMS Prescribed by: GREG HYMAN on 03/05/21 193 Divalproex Sodium (Divalproex Sodium) 125 Mg Tablet.dr, 250 MG PO BID Prescribed by: CLEMENTE PEREZ on 09/07/19 1345 Ibuprofen (Ibuprofen) 600 Mg Tablet, 600 MG PO Q6H PRN for PAIN-MILD Prescribed by: Fabien Robles on 04/27/22 1212 Levetiracetam (Keppra) 500 Mg Tablet, 500 MG PO BID Prescribed by: Aleja Martin on 05/07/22 181 Naproxen (Naproxen) 500 Mg Tablet.dr, 500 MG PO BID Prescribed by: GREG HYMAN on 03/05/21 193 Review of Systems Review of Systems Constitutional: see HPI Mouth: other (dental pain) Past [place] Hx Patient Social History Tobacco Use?: Yes Substance use?: Yes Substance type: Methamphetamine, Marijuana Alcohol Use?: No Pt feels they are or have been: No Immunizations Up To Date Tetanus Booster (TDap): Unknown First/Initial COVID19 Vaccinat: N/A Second COVID19 Vaccination Betito: N/A Third COVID19 Vaccination Date: N/A Seasonal Allergies Seasonal Allergies: No Past Medical History Surgery/Hospitalization HX: SEIZURES, TBI, DEVELOPMENTAL D/O, Surgeries: Yes Abdominal Respiratory: No Cardiac: No Neurological: Yes (DEVELOPMENTAL DELAY) Developmental Disorder, Seizure Disorder, Traumatic Brain Injury Genitourinary: No Gastrointestinal: No Musculoskeletal: No Endocrine: No HEENT: No Cancer: No Psychosocial: No Integumentary: No Blood Disorders: No Family Medical History No Pertinent Family Hx 11/04/20--DROWING IN POOL, ( FELT TO BE DUE TO SEIZURE--PT WITH PRIOR HISTORY OF SEIZURE DISORDER AND SOME DEVELOPMENTAL DELAY)-- S/P CARDIOPULMONARY ARREST WITH SUCCESSFUL RESUSCITATION AND TRANSFERRED TO [facility]. DID NOT REQUIRE ANY PROLONGED HOSPITALIZATION--WAS HOSPITALIZED ONLY A COUPLE OF DAYS Physical Exam Vital Signs Vital Signs - First Documented 12/01/22 01:37 Temp 36.0 Pulse 56 Resp 16 B/P (MAP) 144/107 (119) Pulse Ox 100 O2 Delivery Room Air Height, Weight, BMI Height: '" Weight: lbs. oz. kg; 17.00 BMI Method: General Appearance: thin (appears chronically ill) Eyes: bilateral eye other (bilateral conjunctival injection; pupils 4-5mm and equal) Nose: normal inspection Mouth/Throat: normal mouth inspection, other (tooth #15 fractured. no surrounding gingival edema or erythema; no percussive tenderness; no drainage - overall teeth appear to be in failry decent condition) Respiratory: no respiratory distress, no accessory muscle use Neurologic/Psychiatric: other (somnolent) Skin: normal color, warm/dry Procedures/Interventions Date of ETT Placement: Nov 04, 2020 Time of ETT Placement: 1042 Progress/Results/Core Measures Results/Orders Vital Signs/I&O 12/01/22 01:37 Temp 36.0 Pulse 56 Resp 16 B/P (MAP) 144/107 (119) Pulse Ox 100 O2 Delivery Room Air Blood Pressure Mean: 119 Progress Progress Note : Time: 02:08 Progress Note Patient seen and evaluated by me. Eval today includes physical exam. Patient has stable VS. He has an obvious fractured tooth (#15) without signs of abscess or infection. Ddx based on H&P - chronic dental pain, dental abscess, narcotic seeking behaviour Patient treated with 500mg of naprosyn. I have no concern at this time for abscess/infection. Patient is obviously intoxicated on some substance. He is afebrile. Not tachycardic. No distress. Actually falling asleep in the bed while I am talking to him. I advised that he can call the [facility] at 0730 in the morning to get into the clinic for tooth extraction. I advised smoking cessation adn educated him that smoking is bad for his overall health as well as his teeth. Return precautions provided. Counseling-Symptomatic: 3-10 Minutes Follow-up with PCP to: Discuss Further Options Departure Impression Primary Impression: Chronic dental pain Additional Impression: Fractured tooth Qualified Codes: S02.5XXA - Fracture of tooth (traumatic), initial encounter for closed fracture Disposition: 01 HOME, SELF-CARE Condition: Stable Departure-Patient Inst. Decision time for Depature: 02:12 Referrals: [facility] (PCP) Primary Care Physician TON KELLEY APRN (Family) Primary Care Physician Patient Instructions: Fractured Tooth (DC) Add. Discharge Instructions: You should stop smoking because this will worsen your dental pain. There are things you can get at [facility] - where the toothpaste is - to cover a broken tooth. You can use topical medications to help the pain as well. Follow packaging instructions. Always take Ibuprofen/Aleve with food. Taking too much as well as smoking can cause an ulcer which could rupture and leave you pooping into a bag, Call the [facility] at 7:30am to schedule a same day appointment to have the tooth evaluated and taken care of. [phone]. Return to the Emergency Department for any new, concerning or emergent complaints. Images Mouth/Nose 1 - Fracture Tooth Copy Copies To 1: MIRLANDE TRIVEDI KATHRYN M MD Dec 01, 2022 01:47
[2022-12-01] MEDS ORDERED: NAPROXEN 250 MG TABLET PO ONE (02:30)
== END 2022-12-01 02:24 | disposition home or self-care (01) ==
LOC: EDUNIT# 01:35 → ER 01:37
DX: S02.5XXA Fracture of tooth (traumatic), initial encounter for closed fracture (principal); G89.29 Other chronic pain; F17.210 Nicotine dependence, cigarettes, uncomplicated; Z71.6 Tobacco abuse counseling; X58.XXXA Exposure to other specified factors, initial encounter
CPT/HCPCS: 99283

== ENCOUNTER 2023-01-26 12:46 | Emergency (ER) | payer MEDICARE, MEDICAID ==
[2023-01-26] MEDS ORDERED: levETIRAcetam 1000 mg/NS 100ml 100 ML IV STA (12:53)
[2023-01-26] MEDS ORDERED: DIVALPROEX 250 MG DELAYED RELEASE TABLET PO ONE (13:00)
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
[2023-01-26 13:16] LABS: BASOPHILS % (AUTO) 0 % (0-10); EOSINOPHILS # (AUTO) 0.3 10^3/uL (0.0-0.3); EOSINOPHILS % (AUTO) 4 % (0-10); HEMATOCRIT 41 % (40-54); HEMOGLOBIN 13.7 g/dL (13.3-17.7); LYMPHOCYTES # (AUTO) 3.1 10^3/uL (1.0-4.0); LYMPHOCYTES % (AUTO) 41 % (12-44); MEAN CORPUSCULAR HEMOGLOBIN 32 pg (25-34); MEAN CORPUSCULAR HGB CONC 34 g/dL (32-36); MEAN CORPUSCULAR VOLUME 97 fL (80-99); MEAN PLATELET VOLUME 9.5 fL (9.0-12.2); MONOCYTES # (AUTO) 0.5 10^3/uL (0.0-1.0); MONOCYTES % (AUTO) 6 % (0-12); NEUTROPHILS # (AUTO) 3.7 10^3/uL (1.8-7.8); NEUTROPHILS % (AUTO) 48 % (42-75); PLATELET COUNT 238 10^3/uL (130-400); WHITE BLOOD COUNT 7.7 10^3/uL (4.3-11.0)
[2023-01-26 13:27] LABS: ALBUMIN 3.8 GM/DL (3.2-4.5); CHLORIDE 109 MMOL/L (98-107); POTASSIUM 3.7 MMOL/L (3.6-5.0); SODIUM 140 MMOL/L (135-145)
[2023-01-26 13:28] LABS: CALCIUM 8.6 MG/DL (8.5-10.1)
[2023-01-26 13:29] LABS: GLUCOSE 64 MG/DL (70-105)
[2023-01-26 13:30] LABS: CARBON DIOXIDE 21 MMOL/L (21-32); TOTAL PROTEIN 6.3 GM/DL (6.4-8.2)
[2023-01-26 13:31] LABS: BILIRUBIN,TOTAL 0.6 MG/DL (0.1-1.0)
[2023-01-26 13:33] LABS: ALKALINE PHOSPHATASE 112 U/L (40-136); CREATININE SERUM 0.78 MG/DL (0.60-1.30); GFR ESTIMATED 125
[2023-01-26 13:34] LABS: BUN/CREATININE RATIO 12
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
[2023-01-26 13:36] LABS: ALANINE AMINOTRANSFERASE 20 U/L (0-55)
[2023-01-26 13:45] LABS: VALPROIC ACID < 2.0 UG/ML (50.0-100.0)
[2023-01-26] MEDS ORDERED: GADOTERATE 0.5 MMOL/ML (CLARISCAN) 15 ML VIAL IV ONE (14:30)
--- NOTE | 2023-01-26 16:14 | Diagnostic Imaging Report ---
CLINICAL INDICATION: Patient with abnormal head CT, seizure, and head injury. EXAM: MRI of the brain performed without and with 10 cc of Clariscan IV contrast. Sequences include axial DWI, ADC map, axial gradient echo, axial T2, axial FLAIR, axial T1, axial T1 post IV contrast, coronal T1 fat-sat post IV contrast, and sagittal T1 post IV contrast. COMPARISON: CT scan of the head and cervical spine without contrast dated 01/26/2023 and 03/05/2021. FINDINGS: There is motion artifact limiting evaluation of brain anatomical detail. There is no evidence of acute cerebral infarct, intracranial hemorrhage, or gross mass effect. Compared to the prior head CT dated 03/05/2021, there is interval development of a small area of increased T2 signal involving the basilar aspect of the left frontal lobe. There is a questionable 8 mm area of enhancement involving the upper aspect of this lesion versus artifact. This area measures 2.7 cm x 1.9 cm in AP x transverse dimensions. There is no significant abnormal IV contrast enhancement. There is curvilinear slight increased T1 signal in the region. There are multiple focal areas of high T2 signal white matter changes involving the subcortical regions of both cerebral hemispheres, which are nonspecific given patient's age. The brain parenchymal volume appears appropriate for patient's age. There is normal wood-white matter distinction. There is no significant midline shift or herniation. The visualized [place] vascular structures are unremarkable. The pituitary gland, sella, and suprasellar regions are unremarkable as visualized. There is no evidence of hydrocephalus. The basal cisterns are unremarkable. The skull, extracranial soft tissue, and orbits are unremarkable. There is [id number] amount of consolidation and secretions involving the left maxillary sinus. There is mild mucosal thickening involving the left ethmoid sinus region. Temporal bones show no significant abnormality. IMPRESSION: 1: There is no evidence of acute intracranial process. 2: There is interval development of a small area of increased T2 signal involving the basilar left temporal lobe region. Given that this area has developed in the interim, cystic encephalomalacia is suspected. There is questionable small eccentric area of enhancement involving the upper aspect of this lesion versus artifact. If this is not a known finding from prior outside imaging, then follow-up MRI of the brain with and without contrast using seizure protocol in three months is suggested to evaluate for interval change and further characterization. 3: There is interval development of nonspecific multiple focal areas of high T2 signal white matter changes involving both cerebral hemispheres. Dictated by: Dictated on workstation # [id number]
[2023-01-26] MEDS ORDERED: DIVA-74 PO (16:20)
[2023-01-26 16:27] VITALS: BP 115/79
== END 2023-01-26 16:27 | disposition home or self-care (01) ==
LOC: EDUNIT# 12:46 → ER 12:47
DX: S00.83XA Contusion of other part of head, initial encounter (principal); S80.211A Abrasion, right knee, initial encounter; G40.909 Epilepsy, unspecified, not intractable, without status epilepticus; G93.89 Other specified disorders of brain; V18.4XXA Pedal cycle driver injured in noncollision transport accident in traffic accident, initial encounter; W22.8XXA Striking against or struck by other objects, initial encounter; Y93.55 Activity, bike riding
CPT/HCPCS: 70450; 70553; 72125; 73562; 80053; 80164; 85025; 99284; G0480; 36415; 80320

== ENCOUNTER 2023-01-26 17:11 | Emergency (ER) | payer MEDICARE, MEDICAID ==
[~2023-01-26] VITALS: Ht 170.1 cm; Wt 54.4 kg
[~2023-01-26 17:11] MED LIST changes: +DIVA-74 PO
--- NOTE | 2023-01-26 17:18 | ED General ---
General Stated Complaint: SEIZURE Source of Information: Patient Exam Limitations: No Limitations History of Present Illness Date Seen by Provider: Jan 26, 2023 Time Seen by Provider: 17:17 Initial Comments Patient is a 27-year-old male with a history of seizure who presents ED for a seizure. Patient just left our facility was between medical [place] in [facility] bystanders noted patient collapsing. This was witnessed. Patient did not hit his head. Fire and EMS was contacted. EMS state patient was postictal. Patient is at his normal state when he was here in the ED. He is alert and orient x4. GCS 15. Patient is mumbling. Patient is supposedly on Depakote. Did receive oral Depakote during his stay as he initially refused IV. Patient had a CT scan of his head and cervical neck and MRI of his brain. Questionable cystic encephalomalacia. Patient had no seizure-like activity during his stay. Patient denies chest pain shortness of breath, cough nausea, vomiting, chest pain, diarrhea. Allergies and Home Medications Allergies Coded Allergies: No Known Drug Allergies (Unverified , 09/07/19) Patient Home Medication List Home Medication List Reviewed: Yes Aripiprazole (Aripiprazole) 5 Mg Tablet, 5 MG PO DAILY, (Reported) Entered as Reported by: SHABBIR FORTUNE on 04/16/22 1226 Azithromycin (Azithromycin) 250 Mg Tablet, 250 MG PO DAILY Prescribed by: VIRAL HERNANDEZ on 11/09/201948 Clindamycin HCl (Clindamycin HCl) 300 Mg Capsule, 300 MG PO QID Prescribed by: CLEMENTE PEREZ on 07/25/22 0036 Cyclobenzaprine HCl (Cyclobenzaprine HCl) 10 Mg Tablet, 10 MG PO Q8H PRN for SPASMS Prescribed by: GREG HYMAN on 03/05/21 193 Divalproex Sodium (Divalproex Sodium) 125 Mg Tablet., 250 MG PO BID Prescribed by: CLEMENTE PREEZ on 09/07/19 1345 Divalproex Sodium (Divalproex Sodium) 250 Mg Tablet.dr, 250 MG PO BID Prescribed by: APRIL GA on 01/26/23 1620 Ibuprofen (Ibuprofen) 600 Mg Tablet, 600 MG PO Q6H PRN for PAIN-MILD Prescribed by: Fabien Robles on 04/27/22 1212 Levetiracetam (Keppra) 500 Mg Tablet, 500 MG PO BID Prescribed by: Aleja Martin on 05/07/22 181 Naproxen (Naproxen) 500 Mg Tablet.dr, 500 MG PO BID Prescribed by: GREG HYMAN on 03/05/21 193 Review of Systems Review of Systems Constitutional: No chills, No diaphoresis EENTM: No blurred vision, No double vision Respiratory: No cough, No dyspnea on exertion Cardiovascular: No no symptoms reported Gastrointestinal: No abdominal pain, No diarrhea, No nausea, No vomiting Genitourinary: No decreased output, No discharge Musculoskeletal: No back pain, No joint pain Skin: No change in color, No change in hair/nails Psychiatric/Neurological: Seizure All Other Systems Reviewed Negative Unless Noted: Yes Past Wkjcrrb-Rgglto-Gbmdrt Hx Immunizations Up To Date Tetanus Booster (TDap): Unknown First/Initial COVID19 Vaccinat: N/A Second COVID19 Vaccination Betito: N/A Third COVID19 Vaccination Date: N/A Seasonal Allergies Seasonal Allergies: No Past Medical History Surgery/Hospitalization HX: SEIZURES, TBI, DEVELOPMENTAL D/O, Surgeries: Yes Abdominal Respiratory: No Cardiac: No Neurological: Yes (DEVELOPMENTAL DELAY) Developmental Disorder, Seizure Disorder, Traumatic Brain Injury Genitourinary: No Gastrointestinal: No Musculoskeletal: No Endocrine: No HEENT: No Cancer: No Psychosocial: No Integumentary: No Blood Disorders: No Family Medical History No Pertinent Family Hx 11/04/20--DROWING IN POOL, ( FELT TO BE DUE TO SEIZURE--PT WITH PRIOR HISTORY OF SEIZURE DISORDER AND SOME DEVELOPMENTAL DELAY)-- S/P CARDIOPULMONARY ARREST WITH SUCCESSFUL RESUSCITATION AND TRANSFERRED TO [facility]. DID NOT REQUIRE ANY PROLONGED HOSPITALIZATION--WAS HOSPITALIZED ONLY A COUPLE OF DAYS Physical Exam Vital Signs Vital Signs - First Documented 01/26/23 01/26/23 17:32 18:03 Pulse 58 B/P (MAP) 112/56 (74) Pulse Ox 97 O2 Delivery Room Air Capillary Refill : Height, Weight, BMI Height: '" Weight: lbs. oz. kg; 17.00 BMI Method: General Appearance: No Apparent Distress, Other (Slow to respond, mumbling) Eyes: Bilateral Eye Normal Inspection, Bilateral Eye PERRL, Bilateral Eye EOMI HEENT: PERRL/EOMI, TMs Normal, Normal ENT Inspection, Pharynx Normal Neck: Full Range of Motion, Normal Inspection, Non Tender, Supple Respiratory: Chest Non Tender, Lungs Clear, Normal Breath Sounds, No Accessory Muscle Use, No Respiratory Distress Cardiovascular: Regular Rate, Rhythm, No Edema, No Gallop, No JVD Gastrointestinal: Normal Bowel Sounds, No Organomegaly, No Pulsatile Mass Back: Normal Inspection, No CVA Tenderness Extremity: Normal Capillary Refill, Normal Inspection, Normal Range of Motion, Non Tender Neurologic/Psychiatric: Alert, Oriented x3, No Motor/Sensory Deficits, Normal 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, 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 Norm as Tested Skin: Normal Color, Warm/Dry Procedures/Interventions Date of ETT Placement: Nov 04, 2020 Time of ETT Placement: 1042 Progress/Results/Core Measures Suspected Sepsis SIRS Temperature: Pulse: Respiratory Rate: Blood Pressure / Mean: Results/Orders Lab Results Laboratory Tests Test 01/26/23 17:47 Range/Units Urine Opiates Screen NEGATIVE NEGATIVE Urine Oxycodone Screen NEGATIVE NEGATIVE Urine Methadone Screen NEGATIVE NEGATIVE Urine Propoxyphene Screen NEGATIVE NEGATIVE Urine Barbiturates Screen NEGATIVE NEGATIVE Ur Tricyclic Antidepressants Screen NEGATIVE NEGATIVE Urine Phencyclidine Screen NEGATIVE NEGATIVE Urine Amphetamines Screen NEGATIVE NEGATIVE Urine Methamphetamines Screen NEGATIVE NEGATIVE Urine Benzodiazepines Screen NEGATIVE NEGATIVE Urine Cocaine Screen NEGATIVE NEGATIVE Urine Cannabinoids Screen POSITIVE H NEGATIVE My Orders Orders - EDUARDO ROY Drug Screen Stat (Urine) (01/26/23 17:18) Ekg Tracing (01/26/23 17:18) Vital Signs/I&O 01/26/23 01/26/23 17:32 18:03 Pulse 58 B/P (MAP) 112/56 (74) 112/56 Pulse Ox 97 O2 Delivery Room Air Capillary Refill : ECG Comment Sinus rhythm, 61 bpm, QRS duration 88 MS, QTc 418 MS Departure Communication (PCP) Reviewed previous ER visits, H&P, lab testing. Patient was discharged from our facility about 1 hour ago for a seizure. Supposedly had a seizure while walking to [facility] right after discharge. According to bystanders patient collapsed on the ground. There was no evidence of convulsions. EMS was contacted state patient looked postictal. Patient not currently taking his Depakote which it is recommended 250 mg twice daily. Patient was evaluated by CT scan and MRI during his stay which showed nonspecific findings without evidence of bleed or acute fracture. Bystanders did not note any obvious head injury when he fall. Patient does have a contusion to the right frontal head but that was here prior during his last visit. No evidence of contusion bruising swelling on exam of the sscalp. He has no tenderness to palpate of the scalp, cervical, thoracic or lumbar spine. Patient alert and orient x3. Does appear to be mumbling similar type presentation at his last visit. Patient is currently homeless. Patient is trying to go home. Patient had a thorough work-up right before discharge. Did receive Depakote 250mg. Patient refused any IV at this time. EKG and urinalysis with drug screen was obtained. History of substance abuse. EKG showed normal sinus rhythm without evidence of ST elevation depression or arrhythmia. Drug screen positive for marijuana. Reassuring lab work prior. He had an MRI which was concern for cystic encephalomalacia. He was recommended follow-up with neurology outpatient. Patient was observed during his stay. Patient was requesting something to eat. Patient was requesting a ride home. Seizure precautions here. Did get a ride back home. It Is recommend continue taking his Depakote. Prescription was sent to his pharmacy which is recommended to [facility]. Return precautions were discussed with patient. Impression Primary Impression: Seizure disorder Disposition: 01 HOME, SELF-CARE Condition: Stable Departure-Patient Inst. Decision time for Depature: 19:30 Referrals: [facility] (PCP) Primary Care Physician TON KELLEY APRN (Family) Primary Care Physician Patient Instructions: Seizures, Adult ED EDUARDO ROY Jan 26, 2023 17:18
[2023-01-26 18:03] VITALS: BP 112/56
[2023-01-26 18:10] LABS: AMPHETAMINE SCREEN, URINE NEGATIVE (NEGATIVE); BARBITURATE SCREEN URINE NEGATIVE (NEGATIVE); CANNABINOID SCREEN, URINE POSITIVE (NEGATIVE); COCAINE SCREEN URINE NEGATIVE (NEGATIVE); METHADONE STAT NEGATIVE (NEGATIVE); OPIATE SCREEN URINE NEGATIVE (NEGATIVE); OXYCODONE STAT NEGATIVE (NEGATIVE); PROPOXYPHENE STAT NEGATIVE (NEGATIVE); TRICYCLIC ANTIDEPRESSANTS SCRE NEGATIVE (NEGATIVE)
== END 2023-01-26 18:08 | disposition home or self-care (01) ==
LOC: EDUNIT# 17:11 → ER 17:12
DX: G40.909 Epilepsy, unspecified, not intractable, without status epilepticus (principal)
CPT/HCPCS: 80306; 93005